=== PATIENT | male | born 1950 | race Caucasian/White ===

== ENCOUNTER 2016-06-10 13:13 | Inpatient (IN) | payer OTHER, MEDICARE ==
[2016-06-10] VITALS (9 sets, daily range): BP systolic 120–145; BP diastolic 65–80; PULSE 90–104; RESP 18–22; TEMP 96.2; O2SAT 87–94
[~2016-06-10] VITALS: Ht 185.4 cm; Wt 85.0 kg
[~2016-06-10 13:13] MED LIST: LEXA10TA PO; METF-324 PO; ULTR50TA PO
[2016-06-10] MEDS ORDERED: TRAM50TA PO (14:50)
[2016-06-10] MEDS ORDERED: METF-382 PO (14:50)
[2016-06-10] MEDS ORDERED: SODIUM CHLORID 0.9% 500 ML INJ 500 ML IV ONE (15:00)
[2016-06-10] MEDS ORDERED: SODIUM CHLORIDE 0.9% FLUSH 5 ML FLUSH IVF PRN ×2 (15:00→18:30)
--- NOTE | 2016-06-10 15:14 | PD ---
HPI Chief Complaint: Abnormal Results Time Seen by Provider: 14:42 Travel History International Travel<30 days: No Contact w/Intl Traveler<30days: No Traveled to known affect area: No History of Present Illness HPI Patient is a 66-year-old male with history of chronic lymphocytic leukemia, type 2 diabetes, hyperlipidemia, htn, presents to emergency room with complaints of shortness of breath. Patient reports that he was seen at the [facility] today, reports that he was sent to the emergency room if he has been experiencing a nonproductive cough and shortness of breath for the past 5 weeks. Patient reports that his shortness of breath is getting worse and was concerned that he was coughing so much, he may have "popped" his lung. Reports that he is not a smoker, reports no recent travels or chest. Denies history of PE or DVT. Denies any sick contacts. Denies fevers or chills. Patient reports shortness of breath at rest as well as on exertion. Pt's initial complaints were "abnormal WBC results." Pt's WBC 337.9 - pt does have CLL which could explain this leukocytosis. As per patient's CLL, pt last had chemotherapy on 11/2015. PFSH Past Medical History Bipolar Disorder: Yes Depression: Yes Cancer: Yes (Leukemia - treated with chemo a few days ago; Skin Cancer - basal cell) Chemotherapy: Yes (PREVIOUSLY FOR SKIN CA) Diabetes: Yes Patient Takes Glucophage: Yes Hypertension: Yes Musculoskeletal: Yes (LOW BACK PAIN) Psychiatric: Yes (Bipolar Disorder, ETOH Abuse, PTSD) Integumentary: Yes Past Surgical History Other Surgery: Yes (SURGERY FOR SKIN CA) Social History Alcohol Use: No (DENIES) Tobacco Use: No Substance Use: No Allergies-Medications (Allergen,Severity, Reaction): Coded Allergies: Olanzapine (Verified Allergy, Unknown, 06/10/16) Per patient "develops oozing blister-like rashes". Citalopram (Verified Adverse Reaction, Intermediate, RASH, 06/10/16) Mirtazapine (Verified Adverse Reaction, Intermediate, RASH, 06/10/16) Paxil (Verified Adverse Reaction, Intermediate, RASH, 06/10/16) Reported Meds & Prescriptions Reported Meds & Active Scripts Active Reported Tramadol (Tramadol HCl) 50 Mg Tab 50 Mg PO Q4H PRN Metformin ER (Metformin HCl) 1,000 Mg Ariane 1,000 Mg PO DAILY With evening meal Review of Systems General / Constitutional: No: Fever Eyes: No: Visual changes HENT: No: Headaches Cardiovascular: No: Chest Pain or Discomfort Respiratory: Positive: Cough, Shortness of Breath, No: Wheezing Gastrointestinal: No: Nausea, Vomiting, Abdominal Pain Genitourinary: No: Dysuria Musculoskeletal: No: Pain Skin: No Rash Neurologic: No: Weakness Psychiatric: No: Depression Endocrine: No: Polydipsia Hematologic/Lymphatic: No: Easy Bruising Physical Exam Narrative GENERAL: moderate distress SKIN: Warm and dry. HEAD: Atraumatic. Normocephalic. EYES: Pupils equal and round. No scleral icterus. No injection or drainage. ENT: No nasal bleeding or discharge. Mucous membranes pink and moist. NECK: Trachea midline. No JVD. CARDIOVASCULAR: tachycardia. No murmur appreciated. RESPIRATORY: Patient with increased work of breathing on evaluation. Clear to auscultation. Breath sounds equal bilaterally. GASTROINTESTINAL: Abdomen soft, non-tender, nondistended. Hepatic and splenic margins not palpable. MUSCULOSKELETAL: No obvious deformities. No clubbing. No cyanosis. No edema. NEUROLOGICAL: Awake and alert. No obvious cranial nerve deficits. Motor grossly within normal limits. Normal speech. PSYCHIATRIC: Appropriate mood and affect; insight and judgment normal. Data Data Last Documented VS Vital Signs Date Time Temp Pulse Resp B/P Pulse Ox O2 Delivery O2 Flow Rate FiO2 06/10/16 16:59 90 18 139/74 93 Non-Rebreather 06/10/16 14:04 2 06/10/16 13:28 96.2 Orders Electrocardiogram (06/10/16 ) B-Type Natriuretic Peptide (06/10/16 14:56) Ckmb (Isoenzyme) Profile (06/10/16 14:56) Complete Blood Count With Diff (06/10/16 14:56) Comprehensive Metabolic Panel (06/10/16 14:56) Magnesium (Mg) (06/10/16 14:56) Prothrombin Time / Inr (Pt) (06/10/16 14:56) Act Partial Throm Time (Ptt) (06/10/16 14:56) Troponin I (06/10/16 14:56) Chest, Single Ap (06/10/16 14:56) Ecg Monitoring (06/10/16 14:56) Iv Access Insert/Monitor (06/10/16 14:56) Oximetry (06/10/16 14:56) Sodium Chloride 0.9% Flush (Ns Flush) (06/10/16 15:00) Sodium Chlorid 0.9% 500 Ml Inj (Ns 500 M (06/10/16 15:00) Influenzae A/B Antigen (06/10/16 14:57) Arterial Blood Gas (Abg) (06/10/16 ) Ct Pulmonary Angiogram (06/10/16 15:47) Azithromycin Inj (Zithromax Inj) (06/10/16 18:15) Ceftriaxone Inj (Rocephin Inj) (06/10/16 18:15) Blood Culture (06/10/16 18:06) I-Stat Profile (06/10/16 18:24) I-Stat Creatinine (06/10/16 18:24) Iv Access Insert/Monitor (06/10/16 18:24) Ecg Monitoring (06/10/16 18:24) Oximetry (06/10/16 18:24) Oxygen Administration (06/10/16 18:24) Sodium Chloride 0.9% Flush (Ns Flush) (06/10/16 18:30) Potassium, Serum (K) (06/10/16 21:47) Calcium Gluconate Inj (Calcium Gluconate (06/10/16 19:00) Insulin Human Regular Inj (Novolin R Inj (06/10/16 19:00) Dextrose 50% In Nahum (Vial) Inj (D50w (Vi (06/10/16 19:00) Sodium Bicarbonate 8.4% Inj (Sodium Bica (06/10/16 19:00) Sodium Polysty Sulfate Liq (Kayexalate L (06/10/16 19:00) Labs Laboratory Tests Test 06/10/16 06/10/16 15:00 15:27 White Blood Count 324.5 TH/MM3 Red Blood Count 3.75 MIL/MM3 Hemoglobin 11.6 GM/DL Hematocrit 36.7 % Mean Corpuscular Volume 97.9 FL Mean Corpuscular Hemoglobin 31.0 PG Mean Corpuscular Hemoglobin 31.6 % Concent Red Cell Distribution Width 15.8 % Platelet Count 206 TH/MM3 Mean Platelet Volume 7.7 FL Neutrophils (%) (Auto) 5.4 % Lymphocytes (%) (Auto) 91.9 % Monocytes (%) (Auto) 1.9 % Eosinophils (%) (Auto) 0.5 % Basophils (%) (Auto) 0.3 % Neutrophils # (Auto) 17.5 TH/MM3 Lymphocytes # (Auto) 298.2 TH/MM3 Monocytes # (Auto) 6.2 TH/MM3 Eosinophils # (Auto) 1.6 TH/MM3 Basophils # (Auto) 1.0 TH/MM3 CBC Comment AUTO DIFF Differential Total Cells 100 Counted Neutrophils % (Manual) 7 % Lymphocytes % 91 % Eosinophils % 2 % Neutrophils # (Manual) 22.7 TH/MM3 Differential Comment FINAL DIFF MANUAL Smudge Cells PRESENT Platelet Estimate NORMAL Platelet Morphology Comment NORMAL Red Cell Morphology Comment NORMAL Prothrombin Time 11.0 SEC Prothromb Time International 1.0 RATIO Ratio Activated Partial 23.1 SEC Thromboplast Time B-Type Natriuretic Peptide 28 PG/ML Blood Gas Puncture Site RT BRACHIAL Blood Gas Patient Temperature 98.6 Blood Gas HCO3 24 mmol/L Blood Gas Base Excess 0.3 mmol/L Blood Gas Oxygen Saturation 90 % Arterial Blood pH 7.43 Arterial Blood Partial 37 mmHg Pressure CO2 Arterial Blood Partial 67 mmHG Pressure O2 Arterial Blood Oxygen Content 14.7 Vol % Arterial Blood 2.5 % Carboxyhemoglobin Arterial Blood Methemoglobin 1.4 % Blood Gas Hemoglobin 11.6 G/DL Oxygen Delivery Device Non-Rebreathing Mask Blood Gas Liter Flow 12 L/M Blood Gas Inspired Oxygen 100 % [facility] Medical Decision Making Medical Screen Exam Complete: Yes Emergency Medical Condition: Yes Interpretation(s) EKG at 1449: NSR at 92bpm, qt/qtc: 344/394, nonspecific t wave changes, no acute st changes Vital Signs Date Time Temp Pulse Resp B/P Pulse Ox O2 Delivery O2 Flow Rate FiO2 06/10/16 14:04 87 Nasal Cannula 2 06/10/16 13:28 96.2 92 20 127/65 88 Differential Diagnosis Pneumothorax, PE, ACS, arrhythmia, influenza, pneumonia, electrolyte abnormality Narrative Course Patient is a 66-year-old male who presents to emergency room with complaints of shortness of breath. Patient reports that he has been feeling short of breath the past 5 weeks, reports that he went to the [facility] for evaluation and was sent to the emergency room for a workup for shortness of breath. Patient is not on home O2, patient pulse ox was 88% on room air. Patient placed on a nonrebreather. concern for pneumonia vs pe vs pneumothorax vs acs - chest xray ordered, abg ordered, labs ordered, ekg ordered delay in dispo of patient as lab as requested a recollect on BMP for the second time Patient chest x-ray with right-sided care paratracheal mass, moderate congestive heart failure is present, there is patchy gastric disease laterally in the right lung - BNP is 28. Patient symptomatically with pneumonia, will start IV antibiotics on patient and order blood cultures ISTAT LABS: BMP: Sodium 134 Potassium 7.4 BUN 19 Creatinine 1.0 Hemoglobin 13.3 Hematocrit 39 Patient with hyperacute T waves on EKG with a potassium of 7.4 - calcium gluconate, insulin, dextrose, sodium bicarbonate, Kayexalate ordered for patient. Patient will require admission for hyperkalemia, CT pending. Patient signed out to care of Dr. Garcia at change of shift Diagnosis Primary Impression: Hyperkalemia Admitting Information Admitting Physician Requests: Admit Gldays Smith DO Jun 10, 2016 15:14
[2016-06-10 15:20] LABS: AUTOMATED NEUTROPHIL # 17.5 TH/MM3 (1.8-7.7); BASOPHIL % 0.3 % (0.0-2.0); EOSINOPHIL # 1.6 TH/MM3 (0-0.4); EOSINOPHIL % 0.5 % (0.0-4.0); HEMATOCRIT 36.7 % (39.0-51.0); LYMPH % 91.9 % (9.0-44.0); LYMPHOCYTE # 298.2 TH/MM3 (1.0-4.8); MEAN CELL VOLUME 97.9 FL (80.0-100.0); MEAN CORPUSCULAR HGB CONC 31.6 % (32.0-36.0); MONO % 1.9 % (0.0-8.0); NEUT % 5.4 % (16.0-70.0); PLATELET COUNT 206 TH/MM3 (150-450); RED BLOOD COUNT 3.75 MIL/MM3 (4.50-5.90); RED CELL DISTRIBUTION WIDTH 15.8 % (11.6-17.2); WHITE BLOOD COUNT 324.5 TH/MM3 (4.0-11.0)
[2016-06-10 15:31] LABS: HEMO FLAGS AUTO DIFF
[2016-06-10 15:31] LABS: BLOOD GAS BASE EXCESS 0.3 mmol/L (-2-2); BLOOD GAS CARBOXYHEMOGLOBIN 2.5 % (0-4); BLOOD GAS HCO3 24 mmol/L (22-26); BLOOD GAS METHEMOGLOBIN 1.4 % (0-2); BLOOD GAS O2 HGB SATURATION 90 % (90-100); BLOOD GAS OXYGEN CONTENT 14.7 Vol % (12.0-20.0); BLOOD GAS PCO2 37 mmHg (38-42); BLOOD GAS PO2 67 mmHG (61-120); BLOOD GAS TOTAL HGB 11.6 G/DL (12.0-16.0); CRITICAL VALUE NO; DRAW SITE RT BRACHIAL; FIO2 100 %; LITER FLOW 12 L/M; NUMBER OF ARTERIAL PUNCTURES 2; STAT YES; TEMP CORR TO 98.6; ULNAR PULSE PRESENT
[2016-06-10 15:37] LABS: APTT (PATIENT) 23.1 SEC (24.3-30.1)
--- NOTE | 2016-06-10 16:21 | RADRPT ---
EXAM DATE/TIME: 06/10/2016 15:13 [facility] COMPARISON: No previous studies available for comparison. INDICATIONS : Short of breath. MEDICAL HISTORY : Leukemia. Diabetes mellitus type II. Skin cancer SURGICAL HISTORY : None. ENCOUNTER: Initial ACUITY: 1 day PAIN SCORE: 0/10 LOCATION: Bilateral chest FINDINGS: The heart is enlarged. Mild interstitial edema with blunting of the left costophrenic sulcus. In ad dition there is a right paratracheal mass. Patchy air-space disease is seen laterally in the right lung. Portions of the bony skeleton visualiz ed are unremarkable. CONCLUSION: 1. Abnormal chest x-ray. Moderate congestive failure is present. 2. Right paratracheal mass. 3. CT pulmonary angiogram is pending. Justin Hernández MD FACR on June 10, 2016 at 16:00 Board Certified Radiologist. This report was verified electronically.
[2016-06-10 16:38] LABS: EOSINOPHILS 2 % (0-4); NEUTROPHIL # MANUAL DIFF 22.7 TH/MM3 (1.8-7.7); POLYS (SEG NEUTROPHILS) 7 % (16-70); WBC DIFF SAMPLE 100
[2016-06-10 16:39] LABS: SMUDGE CELLS PRESENT PRESENT
[2016-06-10 16:40] LABS: PLATELET ESTIMATE SMEAR NORMAL (NORMAL); PLATELET MORPHOLOGY NORMAL (NORMAL); SCAN/DIFF FINAL DIFF MANUAL
--- NOTE | 2016-06-10 17:51 | EKG ---
Date Performed: 06/10/2016 Time Performed: 14:49:21 PTAGE: 66 years EKG: Sinus rhythm WITH OCCASIONAL VENTRICULAR PREMATURE COMPLEXES NONSPECIFIC T-WAVE ABNORMALITY BORDERLINE ECG COMPAR ED TO PRIOR ELECTROCARDIOGRAM, PVCs are present. PREVIOUS TRACING : 03/18/2015 20.32 DOCTOR: Chriss Ortiz Interpretating Date/Time 06/10/2016 17:49:39
[2016-06-10] MEDS ORDERED: cefTRIAXone INJ 1,000 MG in SODIUM CHLORIDE 0.9% INJ 100 ML IV ONE (18:15)
[2016-06-10] MEDS ORDERED: AZITHROMYCIN INJ 500 MG in SODIUM CHLOR 0.9% 250 ML INJ 250 ML IV ONE (18:15)
[2016-06-10 18:58] LABS: I-STAT POTASSIUM 7.4 MMOL/L (3.5-4.9)
[2016-06-10] MEDS ORDERED: SODIUM BICARBONATE 8.4% SOLN 50 MEQ/50 ML VIAL SLOW IVP ONE (19:00)
[2016-06-10] MEDS ORDERED: INSULIN HUMAN REGULAR 1,000 UNITS/10 ML VIAL IV PUSH ONE (19:00)
[2016-06-10] MEDS ORDERED: SODIUM POLYSTYRENE SULFONATE SUSP 15 GM/60 ML CUP PO ONE (19:00)
[2016-06-10] MEDS ORDERED: CALCIUM GLUCONATE 10% 1 GM/10 ML VIAL SLOW IVP ONE (19:00)
[2016-06-10] MEDS ORDERED: DEXTROSE 50% IN WATER 50 ML VIAL(D50) IV PUSH ONE (19:00)
[2016-06-10 19:18] LABS: ANION GAP 8 MEQ/L (5-15)
[2016-06-10 19:22] LABS: ALKALINE PHOSPHATASE 133 U/L (45-117); ALT (GPT) 14 U/L (12-78); AST (GOT) 19 U/L (15-37); BICARBONATE 25.3 MEQ/L (21.0-32.0); BLOOD UREA NITROGEN 17 MG/DL (7-18); CHLORIDE 104 MEQ/L (98-107); GLOMERULAR FILTRATION RATE 76 ML/MIN (>89); MAGNESIUM 2.2 MG/DL (1.5-2.5); SODIUM (NA) 137 MEQ/L (136-145); TOTAL BILIRUBIN ADULT 0.4 MG/DL (0.2-1.0)
[2016-06-10 19:27] LABS: CREATINE KINASE 27 U/L (39-308); POTASSIUM 6.1 MEQ/L (3.5-5.1)
[2016-06-10] MEDS ORDERED: IOHEXOL 350 MG/ML 10 ML VIAL (for RAD DIAG) IV ONE (20:45)
--- NOTE | 2016-06-10 20:55 | RADRPT ---
EXAM DATE/TIME: 06/10/2016 20:24 [facility] COMPARISON: No previous studies available for comparison. INDICATIONS : Shortness of breath and chest pain. IV CONTRAST: 50 cc Omnipaque 350 (iohexol) IV RADIATION DOSE: CTDIvol (mGy) MEDICAL HISTORY : Hypertension. Diabetes mellitus type 1. Leukemia. SURGICAL HISTORY : None. ENCOUNTER: Initial ACUITY: 3 weeks PAIN SCALE: 3/10 LOCATION: Bilateral chest TECHNIQUE: Volumetric scanning of the chest was performed using a pulmonary embolism protocol MIP images were re constructed. Using automated exposure control and adjustment of the mA and/or kV according to patien t size, radiation dose was kept as low as reasonably achievable to obtain optimal diagnostic quality images. FINDINGS: Patient reportedly has a history of leukemia. There is massive mediastinal adenopathy with right para tracheal lymph node measuring up to 8.4 cm AP by 4.3 cm transverse. This also extensive anterior medi astinal, subcarinal and hilar adenopathy as well as bilateral axillary adenopathy and some enlarged l ymph nodes in the pericardial region. No filling defects to suggest pulmonary embolic disease. There is patchy airspace disease throughout both lungs much of the groundglass opacity. There is a mo derate-sized left pleural effusion with compressive atelectasis in the left lower lobe. There is a sm all right effusion which is partially loculated. No acute findings in the upper abdomen. There is spl enomegaly and upper abdominal adenopathy. CONCLUSION: 1. Negative for pulmonary embolus. 2. Extensive mediastinal and axillary adenopathy in patient with reported history of leukemia. 3. Moderate left effusion with compressive atelectasis left lower lung. Extensive bilateral airspace disease in the lungs. Findings nonspecific but differential diagnosis in cludes infection, edema and hypersensitivity pneumonitis. Manjeet Alvarado MD on June 10, 2016 at 20:49 Board Certified Radiologist. This report was verified electronically.
--- NOTE | 2016-06-10 21:42 | PD ---
Data Data Last Documented VS Vital Signs Date Time Temp Pulse Resp B/P Pulse Ox O2 Delivery O2 Flow Rate FiO2 06/10/16 20:08 95 18 131/76 91 Non-Rebreather 11 06/10/16 13:28 96.2 Orders Electrocardiogram (06/10/16 ) B-Type Natriuretic Peptide (06/10/16 14:56) Ckmb (Isoenzyme) Profile (06/10/16 14:56) Complete Blood Count With Diff (06/10/16 14:56) Comprehensive Metabolic Panel (06/10/16 14:56) Magnesium (Mg) (06/10/16 14:56) Prothrombin Time / Inr (Pt) (06/10/16 14:56) Act Partial Throm Time (Ptt) (06/10/16 14:56) Troponin I (06/10/16 14:56) Chest, Single Ap (06/10/16 14:56) Ecg Monitoring (06/10/16 14:56) Iv Access Insert/Monitor (06/10/16 14:56) Oximetry (06/10/16 14:56) Sodium Chloride 0.9% Flush (Ns Flush) (06/10/16 15:00) Sodium Chlorid 0.9% 500 Ml Inj (Ns 500 M (06/10/16 15:00) Influenzae A/B Antigen (06/10/16 14:57) Arterial Blood Gas (Abg) (06/10/16 ) Ct Pulmonary Angiogram (06/10/16 15:47) Azithromycin Inj (Zithromax Inj) (06/10/16 18:15) Ceftriaxone Inj (Rocephin Inj) (06/10/16 18:15) Blood Culture (06/10/16 18:06) I-Stat Profile (06/10/16 18:24) I-Stat Creatinine (06/10/16 18:24) Iv Access Insert/Monitor (06/10/16 18:24) Ecg Monitoring (06/10/16 18:24) Oximetry (06/10/16 18:24) Oxygen Administration (06/10/16 18:24) Sodium Chloride 0.9% Flush (Ns Flush) (06/10/16 18:30) Calcium Gluconate Inj (Calcium Gluconate (06/10/16 19:00) Insulin Human Regular Inj (Novolin R Inj (06/10/16 19:00) Dextrose 50% In Nahum (Vial) Inj (D50w (Vi (06/10/16 19:00) Sodium Bicarbonate 8.4% Inj (Sodium Bica (06/10/16 19:00) Sodium Polysty Sulfate Liq (Kayexalate L (06/10/16 19:00) Iohexol 350 Inj (Omnipaque 350 Inj) (06/10/16 20:45) Basic Metabolic Panel (Bmp) (06/10/16 21:32) Admit Order (Ed Use Only) (06/10/16 21:47) Labs Laboratory Tests Test 06/10/16 06/10/16 06/10/16 06/10/16 15:00 15:27 17:43 18:45 White Blood Count 324.5 TH/MM3 Red Blood Count 3.75 MIL/MM3 Hemoglobin 11.6 GM/DL Hematocrit 36.7 % Mean Corpuscular Volume 97.9 FL Mean Corpuscular Hemoglobin 31.0 PG Mean Corpuscular Hemoglobin 31.6 % Concent Red Cell Distribution Width 15.8 % Platelet Count 206 TH/MM3 Mean Platelet Volume 7.7 FL Neutrophils (%) (Auto) 5.4 % Lymphocytes (%) (Auto) 91.9 % Monocytes (%) (Auto) 1.9 % Eosinophils (%) (Auto) 0.5 % Basophils (%) (Auto) 0.3 % Neutrophils # (Auto) 17.5 TH/MM3 Lymphocytes # (Auto) 298.2 TH/MM3 Monocytes # (Auto) 6.2 TH/MM3 Eosinophils # (Auto) 1.6 TH/MM3 Basophils # (Auto) 1.0 TH/MM3 CBC Comment AUTO DIFF Differential Total Cells 100 Counted Neutrophils % (Manual) 7 % Lymphocytes % 91 % Eosinophils % 2 % Neutrophils # (Manual) 22.7 TH/MM3 Differential Comment FINAL DIFF MANUAL Smudge Cells PRESENT Platelet Estimate NORMAL Platelet Morphology Comment NORMAL Red Cell Morphology Comment NORMAL Prothrombin Time 11.0 SEC Prothromb Time International 1.0 RATIO Ratio Activated Partial 23.1 SEC Thromboplast Time B-Type Natriuretic Peptide 28 PG/ML Blood Gas Puncture Site RT BRACHIAL Blood Gas Patient Temperature 98.6 Blood Gas HCO3 24 mmol/L Blood Gas Base Excess 0.3 mmol/L Blood Gas Oxygen Saturation 90 % Arterial Blood pH 7.43 Arterial Blood Partial 37 mmHg Pressure CO2 Arterial Blood Partial 67 mmHG Pressure O2 Arterial Blood Oxygen Content 14.7 Vol % Arterial Blood 2.5 % Carboxyhemoglobin Arterial Blood Methemoglobin 1.4 % Blood Gas Hemoglobin 11.6 G/DL Oxygen Delivery Device Non-Rebreathing Mask Blood Gas Liter Flow 12 L/M Blood Gas Inspired Oxygen 100 % Sodium Level 137 MEQ/L Potassium Level 6.1 MEQ/L Chloride Level 104 MEQ/L Carbon Dioxide Level 25.3 MEQ/L Anion Gap 8 MEQ/L Blood Urea Nitrogen 17 MG/DL Creatinine 0.99 MG/DL Estimat Glomerular Filtration 76 ML/MIN Rate Random Glucose 176 MG/DL Calcium Level 8.6 MG/DL Magnesium Level 2.2 MG/DL Total Bilirubin 0.4 MG/DL Aspartate Amino Transf 19 U/L (AST/SGOT) Alanine Aminotransferase 14 U/L (ALT/SGPT) Alkaline Phosphatase 133 U/L Total Creatine Kinase 27 U/L Troponin I LESS THAN 0.02 NG/ML Total Protein 5.8 GM/DL Albumin 2.7 GM/DL Bedside Hemoglobin 13.3 G/DL Bedside Hematocrit 39.0 % Bedside Sodium 134 MMOL/L Bedside Potassium 7.4 MMOL/L Bedside Chloride 103 MMOL/L Bedside Blood Urea Nitrogen 19 MG/DL Bedside Creatinine 1.0 MG/DL Bedside Glucose 186 MG/DL [facility] Medical Record Reviewed: Yes Supervised Visit with ALEXANDRO: No Narrative Course CBC & BMP Diagram 06/10/16 15:00 06/10/16 17:43 7.43/37/24 BE 0.3 ABG pO2 67 on FiO2 LFTs normal BNP 28 Tn < 0.02 EKG: sinus, mild T wave prominence, rate 92, QRS 98 Last [address] Angiography 06/10/16 1547 Signed Impressions: Service Date/Time: Friday, June 10, 2016 20:24 - CONCLUSION: 1. Negative for pulmonary embolus. 2. Extensive mediastinal and axillary adenopathy in patient with reported history of leukemia. 3. Moderate left effusion with compressive atelectasis left lower lung. Extensive bilateral airspace disease in the lungs. Findings nonspecific but differential diagnosis includes infection, edema and hypersensitivity pneumonitis. Manjeet Alvarado MD Chest X-Ray 06/10/16 1456 Signed Impressions: Service Date/Time: Friday, June 10, 2016 15:13 - CONCLUSION: 1. Abnormal chest x-ray. Moderate congestive failure is present. 2. Right paratracheal mass. 3. CT pulmonary angiogram is pending. Justin Hernández MD FACR The patient follows at the [facility] about every 3 months or so for evaluation of CLL. He reports thrombocytopenia following interventions in the past. He states he is a full code. He lives at home with his . The patient has received Rocephin and azithromycin. Blood cultures sent. Left lung pleural effusion may require thoracentesis. The patient's O2 sat dips to about 86 without a face mask. At rest O2 sats about 89-92% on nonrebreather. His respiratory rate is about 20 breaths per minute and he can speak in sentences. Heart rate 93 and blood pressure about 130/90 at time of admission. Discussed with Dr. Malin. Sepsis Criteria SIRS Criteria (2 or more): Heart rate over 90, WBC > 83065, < 4000 or > 10% bands Sepsis Criteria (SIRS+source): Infect source susp/known Diagnosis Primary Impression: Hyperkalemia Additional Impressions: CLL (chronic lymphocytic leukemia) Pneumonia Qualified Code: J18.9 - Pneumonia of both lungs due to infectious organism, unspecified part of lung Pleural effusion Hypoxia Admitting Information Admitting Physician Requests: Admit Suman Garcia MD Jun 10, 2016 21:42
--- NOTE | 2016-06-10 22:02 | HHI.HP ---
[facility] Service Critical Care Medicine [facility] Admission Diagnosis Hypoxia, HyperK, L Pl Eff, PNA, Leukemia Diagnosis: (1) CLL (chronic lymphocytic leukemia) Diagnosis: Principal (2) History of bipolar disorder Diagnosis: Principal (3) History of post traumatic stress disorder Diagnosis: Principal (4) Hyperkalemia Diagnosis: Principal (5) Pneumonia Diagnosis: Principal (6) Respiratory failure Diagnosis: Principal (7) Diabetes mellitus Diagnosis: Principal (8) Posttraumatic stress disorder Diagnosis: Principal (9) Agammaglobulinemia Diagnosis: Principal (10) Hypertension Diagnosis: Principal (11) Osteoarthritis Diagnosis: Principal (12) Severe sepsis Diagnosis: Principal Chief Complaint: Shortness of breath Travel History International Travel<30 Days: No Contact w/Intl Traveler <30 Da: No Traveled to Known Affected Are: No Sepsis Criteria SIRS Criteria (2 or more): Temp > 100.9 or < 96.8, WBC > 15839, < 4000 or > 10 % bands Sepsis Criteria (SIRS+source): Infect source susp/known Severe Sepsis (+one): Lactate >2 Criteria Outcome: Meets severe sepsis criteria History of Present Illness 66-year-old male. Date of admission 06/10/2016. Past medical history includes CLL treated by Dr. Steele at the [place], diabetes type 2, squamous cell carcinoma of the scalp, rosacea, EtOH, bipolar, depression, PTSD, actinic keratosis, chronic low back pain, dyslipidemia, osteoarthritis. Last chemotherapy 11/15. He presents to [facility] with the 5 history increasing shortness of breath, worse with exertion. Associated with nonproductive cough. Reports that he is not a smoker, reports no recent travels or chest. Denies history of PE or DVT. Denies any sick contacts. Denies fevers or chills. Chest x-ray revealed pneumonia with possible pleural effusion left side. CT revealed no pulmonary embolism. Moderate left pleural effusion. Bronchial pneumonia type findings with inflammatory changes throughout. Patient was placed on nonrebreather mask is currently comfortable and will speak complete sentences. Patient also had a potassium of 7.3.. Received Kayexalate D50 insulin and calcium is currently corrected to 4.4. He is currently status post thoracentesis 1 L of serosanguineous fluid left side. Chest x-ray is currently pending. Review of Systems Constitutional: COMPLAINS OF: Fatigue, Fever, Weight loss, DENIES: Weight gain Endocrine: DENIES: Polydipsia, Polyuria Eyes: DENIES: Blurred vision, Double Vision Respiratory: COMPLAINS OF: Sputum production, Shortness of breath, DENIES: Apneas, Wheezing, Hemoptysis Cardiovascular: DENIES: Chest pain Gastrointestinal: DENIES: Abdominal pain Genitourinary: DENIES: Sexual dysfunction Musculoskeletal: COMPLAINS OF: Joint pain, Muscle aches, DENIES: Neck pain Integumentary: DENIES: Abnormal pigmentation Hematologic/lymphatic: DENIES: Bruising Immunologic/allergic: DENIES: Eczema Neurologic: DENIES: Abnormal gait, Headache Psychiatric: DENIES: Anxiety, Confusion Past Family Social History Allergies: Coded Allergies: Olanzapine (Verified Allergy, Unknown, 06/10/16) Per patient "develops oozing blister-like rashes". Citalopram (Verified Adverse Reaction, Intermediate, RASH, 06/10/16) Mirtazapine (Verified Adverse Reaction, Intermediate, RASH, 06/10/16) Paxil (Verified Adverse Reaction, Intermediate, RASH, 06/10/16) Past Medical History Diabetes mellitus type 2 Ocular rosacea Squamous cell carcinoma of the scalp Prurigo nodularis She had squamous cell carcinoma of the skin A gammaglobulin anemia history of EtOH abuse/binge drinking Bipolar affective disorder Depression Posttraumatic stress disorder Actinic keratosis CLL Chronic low back pain Osteoarthritis Morbid obesity Hypertension Dyslipidemia Reported Medications Reported Meds & Active Scripts Active Reported Tramadol (Tramadol HCl) 50 Mg Tab 50 Mg PO Q4H PRN Metformin ER (Metformin HCl) 1,000 Mg Ariane 1,000 Mg PO DAILY With evening meal Active Ordered Medications Reviewed in EMR Family History Brother with EtOH abuse. 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 Denies tobacco or IV drug use. Prior documentation of binge/social alcohol drinking. Physical Exam Vital Signs Vital Signs Date Time Temp Pulse Resp B/P Pulse Ox O2 Delivery O2 Flow Rate FiO2 06/10/16 20:08 95 18 131/76 91 Non-Rebreather 11 06/10/16 20:08 91 Non-Rebreather 11 06/10/16 16:59 90 18 139/74 93 Non-Rebreather 06/10/16 15:04 95 22 120/66 92 Non-Rebreather 06/10/16 15:03 22 91 Non-Rebreather 06/10/16 14:04 87 Nasal Cannula 2 06/10/16 13:28 96.2 92 20 127/65 88 Physical Exam GENERAL: 66-year-old male, critically ill currently a nonrebreather mask SKIN: Warm and dry. Multiple nodularities noted. Prior skin flap to right side of head and skin graft to the apex of calvarium. HEAD: Prior scarring to head as above EYES: Pupils equal and round about 3 mm bilaterally and reactive. No scleral icterus. No injection or drainage. ENT: No nasal bleeding or discharge. Mucous membranes pink and moist. NECK: Trachea midline. No JVD. CARDIOVASCULAR: Tachycardic, RR.. S1, S2. No S4. Murmurs not appreciated RESPIRATORY: Diminished breath sounds left lung field. Positive end expiratory wheeze GASTROINTESTINAL: Abdomen soft, non-tender, nondistended. Hypoactive bowel sounds MUSCULOSKELETAL: Extremities without significant peripheral edema. No obvious deformities. NEUROLOGICAL: Awake and alert. No obvious cranial nerve deficits. Motor grossly within normal limits. Five out of 5 muscle strength in the arms and legs. Normal speech. PSYCHIATRIC: Appropriate mood and affect; insight and judgment normal. Laboratory Laboratory Tests Test 06/10/16 06/10/16 06/10/16 06/10/16 15:00 15:27 17:43 18:45 White Blood Count 324.5 Red Blood Count 3.75 Hemoglobin 11.6 Hematocrit 36.7 Mean Corpuscular Volume 97.9 Mean Corpuscular Hemoglobin 31.0 Mean Corpuscular Hemoglobin 31.6 Concent Red Cell Distribution Width 15.8 Platelet Count 206 Mean Platelet Volume 7.7 Neutrophils (%) (Auto) 5.4 Lymphocytes (%) (Auto) 91.9 Monocytes (%) (Auto) 1.9 Eosinophils (%) (Auto) 0.5 Basophils (%) (Auto) 0.3 Neutrophils # (Auto) 17.5 Lymphocytes # (Auto) 298.2 Monocytes # (Auto) 6.2 Eosinophils # (Auto) 1.6 Basophils # (Auto) 1.0 CBC Comment AUTO DIFF Differential Total Cells 100 Counted Neutrophils % (Manual) 7 Lymphocytes % 91 Eosinophils % 2 Neutrophils # (Manual) 22.7 Differential Comment FINAL DIFF MANUAL Smudge Cells PRESENT Platelet Estimate NORMAL Platelet Morphology Comment NORMAL Red Cell Morphology Comment NORMAL Prothrombin Time 11.0 Prothromb Time International 1.0 Ratio Activated Partial 23.1 Thromboplast Time B-Type Natriuretic Peptide 28 Blood Gas Puncture Site RT BRACHIAL Blood Gas Patient Temperature 98.6 Blood Gas HCO3 24 Blood Gas Base Excess 0.3 Blood Gas Oxygen Saturation 90 Arterial Blood pH 7.43 Arterial Blood Partial 37 Pressure CO2 Arterial Blood Partial 67 Pressure O2 Arterial Blood Oxygen Content 14.7 Arterial Blood 2.5 Carboxyhemoglobin Arterial Blood Methemoglobin 1.4 Blood Gas Hemoglobin 11.6 Oxygen Delivery Device Non-Rebreathing Mask Blood Gas Liter Flow 12 Blood Gas Inspired Oxygen 100 Sodium Level 137 Potassium Level 6.1 Chloride Level 104 Carbon Dioxide Level 25.3 Anion Gap 8 Blood Urea Nitrogen 17 Creatinine 0.99 Estimat Glomerular Filtration 76 Rate Random Glucose 176 Calcium Level 8.6 Magnesium Level 2.2 Total Bilirubin 0.4 Aspartate Amino Transf 19 (AST/SGOT) Alanine Aminotransferase 14 (ALT/SGPT) Alkaline Phosphatase 133 Total Creatine Kinase 27 Troponin I LESS THAN 0.02 Total Protein 5.8 Albumin 2.7 Bedside Hemoglobin 13.3 Bedside Hematocrit 39.0 Bedside Sodium 134 Bedside Potassium 7.4 Bedside Chloride 103 Bedside Blood Urea Nitrogen 19 Bedside Creatinine 1.0 Bedside Glucose 186 Date/Time Procedure Status Source Growth 06/10/16 18:20 Aerobic Blood Culture Received Blood Peripheral Pending 06/10/16 18:20 Anaerobic Blood Culture Received Blood Peripheral Pending Result Diagram: 06/10/16 1500 06/10/16 [address] Angiography 06/10/16 1547 Signed Impressions: Service Date/Time: Friday, June 10, 2016 20:24 - CONCLUSION: 1. Negative for pulmonary embolus. 2. Extensive mediastinal and axillary adenopathy in patient with reported history of leukemia. 3. Moderate left effusion with compressive atelectasis left lower lung. Extensive bilateral airspace disease in the lungs. Findings nonspecific but differential diagnosis includes infection, edema and hypersensitivity pneumonitis. Manjeet Alvarado MD Chest X-Ray 06/10/16 1456 Signed Impressions: Service Date/Time: Friday, June 10, 2016 15:13 - CONCLUSION: 1. Abnormal chest x-ray. Moderate congestive failure is present. 2. Right paratracheal mass. 3. CT pulmonary angiogram is pending. Justin Hernández MD FACR Assessment and Plan Assessment and Plan Neuro/Psych: Bipolar disorder Post traumatic stress disorder Depression EtOH/binge drinking by history Patient is alert and not currently on any anti-psychiatric medications. Has been [place] acted and admitted for psychiatric evaluation in the past for adjustment disorder/suicidal ideation Acetaminophen for fever. [place]/morphine for pain management Vitamin bag daily 3.. Monitor for DTs CV: Hypertension Dyslipidemia Currently on normal saline at 84 cc an hour. Not requiring any anti-hypertensives and or vasopressors Resp: Acute hypoxemic respiratory failure Community-acquired pneumonia Left pleural effusion Mediastinal/axillary lymphadenopathy Currently on nonrebreather mask. Titrate to keep saturations greater than equal to 92% Incentive spirometry while awake Bronchodilator therapy every 4 hours and as needed Solu-Medrol 40 iv every 8 hours. Received 125 mg 1 in ED. -1 L serosanguineous from left-sided thoracentesis. Studies sent see orders. Multinodular lymphadenopathy involving axillary/mediastinal regions. Significant bronchopulmonary pneumonia bilaterally. Moderate left pleural effusion. Pulmonary consultation GI: Patient is currently nothing by mouth. Protonix for GI prophylaxis Colace/as needed Senokot for bowel regimen : Rosario if indicated for accurate I's and O's in a critically ill patient Endo: Diabetes mellitus type 2 Patient is on metformin 1000 mg twice daily for diabetes. Patient is currently on sliding scale insulin to maintain euglycemia/moderate regimen Renal: Creatinine currently within normal limits. Accurate I/os. Monitor urine output closely. Follow-up a.m. BMP Heme: CLL - sees Dr. Steele/[facility] Leukocytosis/lymphocytic or dominant - Actinic keratosis History of squamous and basal cell carcinoma of the skin Agammaglobulinemia Prurigo nodularis Sees Dr. Steele/oncology at [place] We'll consult infectious disease here for recommendations regarding therapy/ treatment. Will need old records to define current pulmonary condition ID: Bronchopneumonia/community-acquired Chronic prophylactic antibiotic/antifungal medications We'll place on vancomycin, Zosyn/Zithromax (community-acquired pneumonia. CPAP 1 g Rocephin/500 mg Zithromax in ED. Patient is on Diflucan 100 mg by mouth daily and Bactrim 1 tablet every Wednesday/ Wednesday for infection. Blood cultures 2, sputum, influenza, urine Legionella and pneumococcal antigens , chlamydia and mycoplasma antibodies are pending ID will be consulted light of immunocompromise condition Continue Diflucan FEN: Hyperkalemia EKG with peaked T waves. Giving Kayexalate 15 g, calcium gluconate, D50 and insulin. Recheck at 2130 Unknown source possibly Bactrim question funmilayo. Creatinine currently within normal limits. MSK: Osteoarthritis Chronic low back pain PT evaluate and treat Patient is on Ultram 2 tablets every 6 hours as needed for pain at home. Access - Utilize peripheral IV. Central line if indicated Prophylaxis - GI - Protonix - DVT - SCD/heparin subcutaneous Critical Care: The total critical care time was 85 minutes. Time to perform other separately billable procedures was not included in the critical care time. Code Status Full code Discussed Condition With Patient. Dr. Garcia/ED physician. Care plan discussed and all questions answered Problem Qualifiers (1) Pneumonia: Qualified Code: J18.9 - Pneumonia of both lungs due to infectious organism, unspecified part of lung (2) Respiratory failure: Qualified Code: J96.01 - Acute respiratory failure with hypoxia and hypercapnia (3) Diabetes mellitus: Qualified Code: E11.8 - Type 2 diabetes mellitus with complication, without long-term current use of insulin (4) Hypertension: Qualified Code: I10 - Essential hypertension (5) Osteoarthritis: Qualified Code: M19.90 - Osteoarthritis, unspecified osteoarthritis type, unspecified site Dakota Malin MD Jun 10, 2016 22:02
[2016-06-10] MEDS ORDERED: Vancomycin Consult Pharmacy 1 EA XX SCH (22:15)
[2016-06-10] MEDS ORDERED: MISCELLANEOUS NURSING INFORMATION XX SCH (22:15)
[2016-06-10] MEDS ORDERED: MORPHINE SULFATE 4 MG/ML INJ IV PRN (22:15)
[2016-06-10] MEDS ORDERED: RESP: ALBUTEROL 2.5 MG/IPRATROPIUM 0.5 MG NEB (PRN) INH (22:15)
[2016-06-10] MEDS ORDERED: GLUCAGON 1 MG/ML VIAL OTHER PRN (22:15)
[2016-06-10] MEDS ORDERED: SENNOSIDES 8.6 MG TAB PO PRN (22:15)
[2016-06-10] MEDS ORDERED: SODIUM CHLORIDE 0.9% FLUSH 5 ML FLUSH IV FLUSH PRN (22:15)
[2016-06-10] MEDS ORDERED: DEXTROSE 50% IN WATER 50 ML VIAL(D50) IV PUSH PRN (22:15)
[2016-06-10] MEDS ORDERED: LORazepam 2 MG/ML VIAL IV PRN (22:15)
[2016-06-10] MEDS ORDERED: ONDANSETRON HCL 4 MG/2 ML VIAL IV PRN (22:15)
[2016-06-10] MEDS ORDERED: CHLORHEXIDINE GLUCONATE 2 % 1 PACK (2 CLOTHS) TOP PRN (22:15)
[2016-06-10] MEDS ORDERED: ACETAMINOPHEN 325 MG TAB PO PRN (22:15)
--- NOTE | 2016-06-10 23:10 | PD.PROCEDR ---
Procedure Note Procedure DATE: 06/10/2016 PROCEDURE: Thoracentesis INDICATION: Large left pleural effusion DETAILS OF PROCEDURE The patient was placed in optimal position and preoxygenated with 100% FiO2 via bag valve mask. The patient's left side was prepped and draped in a sterile manner after the appropriate infiltration level was confirmed by ultrasound. 1 % lidocaine was used in this side the surrounding skin. A finder needle was used to locate including serosanguineous fluid was obtained. A 10 blade scalpel was used to make incision. The thoracentesis catheter was then threaded without difficulty. The patient had about 1 L of serous including his fluid removed. A postprocedure chest x-ray was ordered in the fluid will be sent for studies. EBL was approximately 1 cc the patient tolerated the procedure well and there were no immediate complications. Dakota Malin MD Jun 10, 2016 23:10
[2016-06-10 23:30] LABS: I-STAT POTASSIUM 4.4 MMOL/L (3.5-4.9)
--- NOTE | 2016-06-10 23:44 | RADRPT ---
EXAM DATE/TIME: 06/10/2016 21:35 [place] COMPARISON: CHEST SINGLE AP, June 10, 2016, 15:13. INDICATIONS : Post left thoracentesis MEDICAL HISTORY : Leukemia. Diabetes mellitus type II. Skin cancer SURGICAL HISTORY : None. ENCOUNTER: Initial ACUITY: 1 day PAIN SCORE: 0/10 LOCATION: Left chest FINDINGS: There is improved aeration of left lung status post thoracentesis. Mediastinal mass again seen. No de finite pneumothorax. CONCLUSION: Improved aeration of the left lung status post thoracentesis. Mediastinal mass. Leonidas Vale MD on June 10, 2016 at 23:42 Board Certified Radiologist. This report was verified electronically.
[2016-06-10 23:48] LABS: BICARBONATE 19.3 MEQ/L (21.0-32.0); POTASSIUM 5.2 MEQ/L (3.5-5.1)
[2016-06-11] VITALS (17 sets, daily range): BP systolic 108–129; BP diastolic 59–79; PULSE 82–104; RESP 15–21; TEMP 98.1–98.4; O2SAT 86–97
[2016-06-11] MEDS: MULTIVITAMIN INJ 10 ML, THIAMINE INJ 100 MG, FOLIC ACID INJ 1 MG in SODIUM CHLORID 0.9%... IV SCH ×2 (00:02→08:12)
[2016-06-11] MEDS: FLUCONAZOLE 100 MG PREMIX BAG 50 ML IV SCH ×2 (00:02→20:52)
[2016-06-11 00:32] LABS: TOTAL PROTEIN,PLEURAL FLUID 3.2 GM/DL
[2016-06-11] MEDS: ENOXAPARIN SODIUM 30 MG/0.3 ML SYRINGE SQ SCH ×2 (01:05→22:48)
[2016-06-11] MEDS: VANCOMYCIN INJ 1,300 MG in SODIUM CHLORID 0.9% 500 ML INJ 500 ML IV SCH ×3 (01:06→22:47)
[2016-06-11 01:23] LABS: PLEURAL FLUID LYMPHS 81 %; PLEURAL FLUID PH 6.7
[2016-06-11] MEDS: SODIUM CHLOR 0.9% 1000 ML INJ 1,000 ML IV SCH ×4 (02:04→05:46)
[2016-06-11 03:45] LABS: HEMATOCRIT 33.7 % (39.0-51.0); MEAN CORPUSCULAR HEMOGLOBIN 30.2 PG (27.0-34.0); MEAN CORPUSCULAR HGB CONC 31.2 % (32.0-36.0); PLATELET COUNT 190 TH/MM3 (150-450); RED BLOOD COUNT 3.47 MIL/MM3 (4.50-5.90); RED CELL DISTRIBUTION WIDTH 15.2 % (11.6-17.2); WHITE BLOOD COUNT 280.1 TH/MM3 (4.0-11.0)
[2016-06-11 03:50] LABS: HEMO FLAGS AUTO DIFF
[2016-06-11] MEDS: CHLORHEXIDINE GLUCONATE 2 % 1 PACK (2 CLOTHS) TOP SCH (04:00)
[2016-06-11 04:10] LABS: ALKALINE PHOSPHATASE 115 U/L (45-117); ALT (GPT) 12 U/L (12-78); ANION GAP 9 MEQ/L (5-15); AST (GOT) 14 U/L (15-37); BICARBONATE 25.8 MEQ/L (21.0-32.0); BLOOD UREA NITROGEN 18 MG/DL (7-18); CHLORIDE 108 MEQ/L (98-107); GLOMERULAR FILTRATION RATE 89 ML/MIN (>89); MAGNESIUM 2.1 MG/DL (1.5-2.5); POTASSIUM 3.8 MEQ/L (3.5-5.1); SODIUM (NA) 143 MEQ/L (136-145); TOTAL BILIRUBIN ADULT 0.5 MG/DL (0.2-1.0)
[2016-06-11 04:17] LABS: EOSINOPHILS 1 % (0-4); NEUTROPHIL # MANUAL DIFF 25.2 TH/MM3 (1.8-7.7); POLYS (SEG NEUTROPHILS) 9 % (16-70); WBC DIFF SAMPLE 100
[2016-06-11 04:18] LABS: PLATELET ESTIMATE SMEAR NORMAL (NORMAL); PLATELET MORPHOLOGY NORMAL (NORMAL); SCAN/DIFF FINAL DIFF MANUAL; SMUDGE CELLS PRESENT PRESENT
[2016-06-11] MEDS: PIPERACIL-TAZO 4.5 GM PREMIX 100 ML IV SCH ×4 (05:52→22:46)
[2016-06-11] MEDS: RESP: ALBUTEROL 2.5 MG/IPRATROPIUM 0.5 MG NEB (SCH) INH ×5 (05:58→19:30)
[2016-06-11] MEDS: INSULIN NovoLIN REGULAR SUPPLEMENTAL SCALE SQ SCH ×4 (06:27→20:46)
[2016-06-11] MEDS: ARTIFICIAL TEARS OPTH SOLN 15 ML BTL EACH EYE SCH ×3 (08:11→18:37)
[2016-06-11] MEDS: SODIUM CHLORIDE 0.9% FLUSH 5 ML FLUSH IV FLUSH SCH ×2 (08:11→20:44)
[2016-06-11] MEDS: DOCUSATE SODIUM 100 MG CAP PO SCH ×2 (08:11→20:43)
[2016-06-11] MEDS: PANTOPRAZOLE SODIUM 40 MG VIAL IV SCH (08:11)
[2016-06-11] MEDS ORDERED: MULTIVITAMIN INJ 10 ML, THIAMINE INJ 100 MG, FOLIC ACID INJ 1 MG in SODIUM CHLORID 0.9%... IV SCH (09:00)
--- NOTE | 2016-06-11 14:04 | HHI.CCPN ---
Subjective Remarks/Hospital Course 66-year-old male. Date of admission 06/10/2016. Past medical history includes CLL treated by Dr. Steele at the [place], diabetes type 2, squamous cell carcinoma of the scalp, rosacea, EtOH, bipolar, depression, PTSD, actinic keratosis, chronic low back pain, dyslipidemia, osteoarthritis. Last chemotherapy 11/15. He presents to [facility] with the 5 history increasing shortness of breath, worse with exertion. Associated with nonproductive cough. Reports that he is not a smoker, reports no recent travels or chest. Denies history of PE or DVT. Denies any sick contacts. Denies fevers or chills. Chest x-ray revealed pneumonia with possible pleural effusion left side. CT revealed no pulmonary embolism. Moderate left pleural effusion. Bronchial pneumonia type findings with inflammatory changes throughout. Patient was placed on nonrebreather mask is currently comfortable and will speak complete sentences. Patient also had a potassium of 7.3.. Received Kayexalate D50 insulin and calcium is currently corrected to 4.4. Objective Vital Signs Date Time Temp Pulse Resp B/P Pulse Ox O2 Delivery O2 Flow Rate FiO2 06/11/16 12:00 98.3 101 19 129/79 97 06/11/16 08:45 [facility] 15.00 Result Diagram: 06/11/1631806/11/169 Other Results Microbiology Date/Time Procedure Status Source Growth 06/10/16 22:25 Influenza Types A,B Antigen (ANSHU) - Final Complete Nasal Aspirate NEGATIVE FOR FLU A AND B ANTIGEN.... 06/10/16 23:59 Legionella Antigen - Final Complete Urine Suprapubic Urine PRESUMPTIVE NEGATIVE FOR LEGIONELLA P... 06/10/16 23:59 Streptococcus pneumoniae Antigen (M - Final Complete Urine Catheterized Urine PRESUMPTIVE NEGATIVE FOR STREPTOCOCCU... Laboratory Tests Test 06/10/16 15:27 Blood Gas Puncture Site RT BRACHIAL Blood Gas Patient Temperature 98.6 Blood Gas HCO3 24 mmol/L (22-26) Blood Gas Base Excess 0.3 mmol/L (-2-2) Blood Gas Oxygen Saturation 90 % (90-100) Arterial Blood pH 7.43 (7.380-7.420) Arterial Blood Partial 37 mmHg (38-42) Pressure CO2 Arterial Blood Partial 67 mmHG Pressure O2 (61-120) Arterial Blood Oxygen Content 14.7 Vol % (12.0-20.0) Arterial Blood 2.5 % (0-4) Carboxyhemoglobin Arterial Blood Methemoglobin 1.4 % (0-2) Blood Gas Hemoglobin 11.6 G/DL (12.0-16.0) Oxygen Delivery Device Non-Rebreathing Mask Blood Gas Liter Flow 12 L/M Blood Gas Inspired Oxygen 100 % Imaging Last Impressions CT Angiography 06/10/16 1547 Signed Impressions: Service Date/Time: Friday, June 10, 2016 20:24 - CONCLUSION: 1. Negative for pulmonary embolus. 2. Extensive mediastinal and axillary adenopathy in patient with reported history of leukemia. 3. Moderate left effusion with compressive atelectasis left lower lung. Extensive bilateral airspace disease in the lungs. Findings nonspecific but differential diagnosis includes infection, edema and hypersensitivity pneumonitis. Manjeet Alvarado MD Chest X-Ray 06/10/16 1456 Signed Impressions: Service Date/Time: Friday, June 10, 2016 15:13 - CONCLUSION: 1. Abnormal chest x-ray. Moderate congestive failure is present. 2. Right paratracheal mass. 3. CT pulmonary angiogram is pending. Justin Hernández MD FACR Objective Remarks GENERAL: 66-year-old male, critically ill currently a nonrebreather mask SKIN: Warm and dry. Multiple nodularities noted. Prior skin flap to right side of head and skin graft to the apex of calvarium. HEAD: Prior scarring to head as above EYES: Pupils equal and round about 3 mm bilaterally and reactive. No scleral icterus. No injection or drainage. ENT: No nasal bleeding or discharge. Mucous membranes pink and moist. NECK: Trachea midline. No JVD. CARDIOVASCULAR: Tachycardic, RR.. S1, S2. No S4. Murmurs not appreciated RESPIRATORY: Diminished breath sounds left lung field. Positive end expiratory wheeze GASTROINTESTINAL: Abdomen soft, non-tender, nondistended. Hypoactive bowel sounds MUSCULOSKELETAL: Extremities without significant peripheral edema. No obvious deformities. NEUROLOGICAL: Awake and alert. No obvious cranial nerve deficits. Motor grossly within normal limits. Five out of 5 muscle strength in the arms and legs. Normal speech. PSYCHIATRIC: Appropriate mood and affect; insight and judgment normal. A/P Assessment and Plan Acute hypoxemic respiratory failure - Left pleural effusion - Community-acquired pneumonia - Bronchodilator therapy every 4 hours and as needed - Solu-Medrol 40 iv every 8 hours. - 1 L serosanguineous from left-sided thoracentesis. - Follow-up cultures and sensitivity. - Multinodular lymphadenopathy involving axillary/mediastinal regions - Broad-spectrum antibiotics - De-escalate per sensitivity and ID recommendations - Significant bronchopulmonary pneumonia bilaterally. - Moderate left pleural effusion - Pulmonary consultation Bipolar disorder/Depression - Patient is not currently on any anti-psychiatric medications - supportive care Hypertension - Currently on normal saline at 84 cc an hour. - Normotensive - Not requiring any anti-hypertensives and or vasopressors Diabetes mellitus type 2 - Hold metformin while in the ICU - Continue sliding scale insulin to maintain euglycemia/moderate regimen CLL - sees Dr. Steele/[place] - We'll consult infectious and medical oncology disease for recommendations regarding therapy/treatment. Bronchopneumonia/community-acquired - Vancomycin, Zosyn/Zithromax (community-acquired pneumonia. - CPAP 1 g Rocephin/500 mg Zithromax in ED. - Patient is on Diflucan 100 mg by mouth daily and Bactrim 1 tablet every Wednesday /Wednesday for infection. - Blood cultures 2, sputum, influenza, urine Legionella and pneumococcal antigens, chlamydia and mycoplasma antibodies are pending - Further per ID recommendations Access: - Utilize peripheral IV. Central line if indicated Prophylaxis - GI - Protonix - DVT - SCD/heparin subcutaneous Level III Ricardo Blkae MD Jun 11, 2016 14:04 Renal: Creatinine currently within normal limits. Accurate I/os. Monitor urine output closely. Follow-up a.m. BMP Heme: CLL - sees Dr. Steele/[place] Leukocytosis/lymphocytic or dominant - Actinic keratosis History of squamous and basal cell carcinoma of the skin Agammaglobulinemia Prurigo nodularis Sees Dr. Steele/oncology at [facility] We'll consult infectious disease here for recommendations regarding therapy/ treatment. Will need old records to define current pulmonary condition ID: Bronchopneumonia/community-acquired Chronic prophylactic antibiotic/antifungal medications We'll place on vancomycin, Zosyn/Zithromax (community-acquired pneumonia. CPAP 1 g Rocephin/500 mg Zithromax in ED. Patient is on Diflucan 100 mg by mouth daily and Bactrim 1 tablet every Wednesday/ Wednesday for infection. Blood cultures 2, sputum, influenza, urine Legionella and pneumococcal antigens , chlamydia and mycoplasma antibodies are pending ID will be consulted light of immunocompromise condition Continue Diflucan FEN: Hyperkalemia EKG with peaked T waves. Giving Kayexalate 15 g, calcium gluconate, D50 and insulin. Recheck at 2130 Unknown source possibly Bactrim question funmilayo. Creatinine currently within normal limits. MSK: Osteoarthritis Chronic low back pain PT evaluate and treat Patient is on Ultram 2 tablets every 6 hours as needed for pain at home. Access - Utilize peripheral IV. Central line if indicated Prophylaxis - GI - Protonix - DVT - SCD/heparin subcutaneous Critical Care: The total critical care time was 85 minutes. Time to perform other separately billable procedures was not included in the critical care time. Ricardo Blake MD Jun 11, 2016 14:04
--- NOTE | 2016-06-11 16:16 | PD.ID.CON ---
History of Present Illness Service ID Consult Requested By Dr Malin Reason for Consult PNA Primary Care Physician [facility] Diagnoses: History of Present Illness 66 M with CLL 2 wks of cough maliase abx x 10 days [facility] worse admitted to [facility] he is better clx neg denies sick contact He remains afebrile the whole admission His total WBC on admission was over 300K with ANC of 17K Pt is on broad spectrum abx since admission He clinically improved and now is feeling much better He does not expectorate and therefore his sputum clx was not done, but he has negative BC, neg Leionells/pneumococcus and flu antiogen His CT chest showed Moderate left effusion with compressive atelectasis left lower lung and extensive bilateral airspace disease in the lungs Pleural fluid G stain was negative, clx P Past Family Social History Allergies: Coded Allergies: Olanzapine (Verified Allergy, Unknown, 06/10/16) Per patient "develops oozing blister-like rashes". 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 Otherwise unremarkable Social History [place] exposure. Denies tobacco or IV drug use. Prior documentation of binge/social alcohol drinking. Physical Exam Vital Signs Vital Signs Date Time Temp Pulse Resp B/P Pulse Ox O2 Delivery O2 Flow Rate FiO2 06/11/16 14:00 104 06/11/16 12:00 98.3 101 19 129/79 97 06/11/16 12:00 101 06/11/16 10:00 99 06/11/16 08:45 95 nebumask 15.00 06/11/16 08:00 98.2 91 18 126/68 91 06/11/16 08:00 91 Non-Rebreather 06/11/16 08:00 91 06/11/16 06:00 92 06/11/16 05:58 94 Non-Rebreather 15.00 06/11/16 04:00 86 06/11/16 04:00 98.1 86 15 113/67 94 06/11/16 03:00 87 06/11/16 03:00 94 Non-Rebreather 06/11/16 02:50 98.1 91 20 118/70 93 06/11/16 02:04 98.1 88 18 121/63 93 Room Air 06/11/16 01:07 98.4 86 18 118/66 92 Non-Rebreather 06/10/16 23:02 103 18 134/72 93 Non-Rebreather 11 06/10/16 22:50 104 18 145/80 92 Non-Rebreather 11 06/10/16 22:37 104 20 144/77 94 Non-Rebreather 12 06/10/16 20:08 95 18 131/76 91 Non-Rebreather 11 06/10/16 20:08 91 Non-Rebreather 11 06/10/16 20:08 91 Non-Rebreather 11.00 06/10/16 16:59 90 18 139/74 93 Non-Rebreather 06/10/16 16:59 93 Non-Rebreather Physical Exam CONSTITUTIONAL/GENERAL: This is an adequately nourished patient, in no apparent distress. TUBES/LINES/DRAINS: SKIN: No jaundice, rashes, + scattered skin ca lesions. . Not diaphoretic. Large skin flap R parietal area HEAD: Atraumatic. Normocephalic. EYES: Pupils equal and round and reactive. Extraocular motions intact. No scleral icterus. No injection or drainage. Fundi not examined. ENT: Hearing grossly normal. Nose without bleeding or purulent drainage. Throat without visible erythema, exudates, masses, or lesions. Edentulous NECK: Trachea midline. Supple, nontender. CARDIOVASCULAR: Regular rate and rhythm without murmurs, gallops, or rubs. No JVD. Peripheral pulses symmetric. RESPIRATORY/CHEST: Symmetric, unlabored respirations. Clear to auscultation. Breath sounds equal bilaterally. No wheezes, rales, or rhonchi. GASTROINTESTINAL: Abdomen soft, non-tender, nondistended. No hepato-splenomegaly , or palpable masses. No guarding. Bowel sounds present. GENITOURINARY: Without palpable bladder distension. MUSCULOSKELETAL: Extremities without clubbing, cyanosis, or edema. No joint tenderness or effusion noted. No calf tenderness. No mottling or clubbing. LYMPHATICS: No palpable cervical or supraclavicular adenopathy. NEUROLOGICAL: Awake and alert. Motor and sensory grossly within normal limits. Follows commands. Speech nl. Moves all extremities. PSYCHIATRIC: No obvious anxiety/depression. no apparent hallucinations or other psychotic thought process. Laboratory Laboratory Tests Test 06/10/16 06/10/16 06/10/16 06/10/16 17:43 18:45 22:50 23:15 Sodium Level 137 137 Potassium Level 6.1 5.2 Chloride Level 104 107 Carbon Dioxide Level 25.3 19.3 Anion Gap 8 11 Blood Urea Nitrogen 17 17 Creatinine 0.99 0.93 Estimat Glomerular Filtration 76 81 Rate Random Glucose 176 123 Calcium Level 8.6 8.7 Magnesium Level 2.2 Total Bilirubin 0.4 Aspartate Amino Transf 19 (AST/SGOT) Alanine Aminotransferase 14 (ALT/SGPT) Alkaline Phosphatase 133 Total Creatine Kinase 27 Troponin I LESS THAN 0.02 Total Protein 5.8 Albumin 2.7 Bedside Hemoglobin 13.3 14.6 Bedside Hematocrit 39.0 43.0 Bedside Sodium 134 139 Bedside Potassium 7.4 4.4 Bedside Chloride 103 102 Bedside Blood Urea Nitrogen 19 19 Bedside Creatinine 1.0 1.0 Bedside Glucose 186 137 Pleural Fluid pH 6.7 Pleural Fluid WBC 07035 Pleural Fluid RBC 655097 Pleural Fluid Neutrophils 8 Pleural Fluid Lymphocytes 81 Pleural Fluid Monocytes 3 Pleural Fluid Eosinophils 2 Pleural Fluid Mesothelial 6 Cells Pleural Fluid Total Protein 3.2 Pleural Fluid LDH 236 Pleural Fluid Glucose 166 Pleural Fluid Amylase 43 Test 06/11/16 06/11/16 03:00 03:19 Nasal Screen MRSA (PCR) NEGATIVE White Blood Count 280.1 Red Blood Count 3.47 Hemoglobin 10.5 Hematocrit 33.7 Mean Corpuscular Volume 97.0 Mean Corpuscular Hemoglobin 30.2 Mean Corpuscular Hemoglobin 31.2 Concent Red Cell Distribution Width 15.2 Platelet Count 190 Mean Platelet Volume 7.6 Neutrophils (%) (Auto) Lymphocytes (%) (Auto) Monocytes (%) (Auto) Eosinophils (%) (Auto) Basophils (%) (Auto) Neutrophils # (Auto) Lymphocytes # (Auto) Monocytes # (Auto) Eosinophils # (Auto) Basophils # (Auto) CBC Comment AUTO DIFF Differential Total Cells 100 Counted Neutrophils % (Manual) 9 Lymphocytes % 89 Monocytes % 1 Eosinophils % 1 Neutrophils # (Manual) 25.2 Differential Comment FINAL DIFF MANUAL Smudge Cells PRESENT Platelet Estimate NORMAL Platelet Morphology Comment NORMAL Red Cell Morphology Comment NORMAL Sodium Level 143 Potassium Level 3.8 Chloride Level 108 Carbon Dioxide Level 25.8 Anion Gap 9 Blood Urea Nitrogen 18 Creatinine 0.86 Estimat Glomerular Filtration 89 Rate Random Glucose 138 Lactic Acid Level 0.8 Calcium Level 8.7 Phosphorus Level 3.4 Magnesium Level 2.1 Total Bilirubin 0.5 Aspartate Amino Transf 14 (AST/SGOT) Alanine Aminotransferase 12 (ALT/SGPT) Alkaline Phosphatase 115 Total Protein 4.9 Albumin 2.4 Date/Time Procedure Status Source Growth 06/10/16 23:59 Streptococcus pneumoniae Antigen (M - Final Complete Urine Catheterized Urine PRESUMPTIVE NEGATIVE FOR STREPTOCOCCU... 06/10/16 23:59 Legionella Antigen - Final Complete Urine Suprapubic Urine PRESUMPTIVE NEGATIVE FOR LEGIONELLA P... 06/10/16 22:50 Gram Stain - Final Resulted Fluid Pleural Fluid 06/10/16 22:50 Body Fluid Culture Resulted Fluid Pleural Fluid Pending 06/10/16 22:50 Fungal Smear - Final Resulted Fluid Pleural Fluid NO FUNGAL ELEMENTS SEEN. 06/10/16 22:50 Fungal Culture Resulted Fluid Pleural Fluid Pending 06/10/16 22:50 Acid Fast Stain Received Fluid Pleural Fluid Pending 06/10/16 22:50 Mycobacterial Culture Received Fluid Pleural Fluid Pending 06/10/16 22:25 Influenza Types A,B Antigen (ANSHU) - Final Complete Nasal Aspirate NEGATIVE FOR FLU A AND B ANTIGEN.... 06/10/16 18:20 Aerobic Blood Culture - Preliminary Resulted Blood Peripheral NO GROWTH IN 1 DAY 06/10/16 18:20 Anaerobic Blood Culture - Preliminary Resulted Blood Peripheral NO GROWTH IN 1 DAY Result Diagram: 06/11/169 06/11/[address] Angiography 06/10/16 1547 Signed Impressions: Service Date/Time: Friday, June 10, 2016 20:24 - CONCLUSION: 1. Negative for pulmonary embolus. 2. Extensive mediastinal and axillary adenopathy in patient with reported history of leukemia. 3. Moderate left effusion with compressive atelectasis left lower lung. Extensive bilateral airspace disease in the lungs. Findings nonspecific but differential diagnosis includes infection, edema and hypersensitivity pneumonitis. Manjeet Alvarado MD Chest X-Ray 06/10/16 1456 Signed Impressions: Service Date/Time: Wednesday, June 10, 2016 15:13 - CONCLUSION: 1. Abnormal chest x-ray. Moderate congestive failure is present. 2. Right paratracheal mass. 3. CT pulmonary angiogram is pending. Justin Hernández MD FACR Assessment and Plan Assessment and Plan CLL with extremely high WBC (in 300K range) per pt his baseline is around 50 K PNA, b/l with clinical improvement - cont current abx - fu P blood and pleurral fluid clx - sputum clx if feasible - no absolute contraindications for sterroids for his CLL, risk/benefits in favour of sterroids at this point for this pt with clinically improved infx and extremely high WBC - anticiapte eventual transition to oral meds Discussed Condition With Dr Driss Mckeon,Isabella Sun MD Jun 11, 2016 16:16
[2016-06-11 16:26] LABS: IMMUNOGLOBULIN A 14 MG/DL (133-294); IMMUNOGLOBULIN G 117 MG/DL (739-1450); IMMUNOGLOBULIN M LESS THAN 8 MG/DL (64-198)
--- NOTE | 2016-06-11 17:18 | MB ---
cc: Carlo DAVIS DATE OF CONSULTATION: 06/11/2016 HISTORY Mr. Liu is a 66-year-old white male taken care regularly at the [facility] who presented yesterday with increasing shortness of breath. Chest x-ray was abnormal with what appeared to be a large left pleural effusion and then a CT scan was done which revealed a large left pleural effusion, a left lower lobe infiltrate, some patchy infiltrates scattered in both lungs and mediastinal adenopathy. He was admitted with sepsis syndrome, probable pneumonia and respiratory insufficiency. He had 2 liters of serosanguineous fluid drained from the left chest and is feeling much better. Actually at the time of this consultation, he is sitting up on nasal oxygen eating his lunch in no distress and says he feels much better. The patient was a former smoker of about half-a-pack per day for 30-35 years, he quit smoking at 50. He has never been told he had emphysema, he has never been treated for significant chronic pulmonary disease and has never had pneumonia previously. However, he has had CLL for at least six years and is followed at [facility] in [place] by a sander wooden pencils there. He has had some chemotherapy as recently as nine months ago but since then his white blood cell counts have been followed. Apparently they have been gradually rising. He relates that when he was first diagnosed he had a white cell count of 500,000. Again, he has had no specific chemotherapy for this in at least the last six-to-nine months. They were waiting for his platelets to recover. He has had cough, congestion, low grade temperature, gradual increasing shortness of breath but no hemoptysis, no significant chest pain, no nausea, vomiting or abdominal pain, no diarrhea. No one has been ill around him. He has had no recent travel and the only animals at home are dogs and they have had those for some time. PAST MEDICAL HISTORY 1. Diabetes type 2. 2. Rosacea. 3. Squamous cell cancers of the scalp. 4. History of prior alcohol use but drinks only occasionally now on weekends. 5. PTSD. 6. Bipolar affective disorder. 7. CLL. 8. Osteoarthritis. 9. Hypertension. SOCIAL HISTORY , living with his of 40 years named Kaylee. Has never used significant illicit drugs in the past, smoked marijuana occasionally. Spent his time in the in [place], probably had Agent [place] exposure. PTSD after discharge. 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 REVIEW OF SYSTEMS Other than that noted above, no chronic edema, no recent skin rash, no reflux symptoms, no recent significant alcohol use. PHYSICAL EXAMINATION GENERAL: A thin white male, no acute distress. VITAL SIGNS: Afebrile, pulse 90, blood pressure 130/70 and respirations 18 at rest. HEENT: Sclerae are pale, anicteric. Mucous membranes are moist. NECK: Neck veins are not distended. CHEST: Chest is actually quite clear. No audible wheezes, a few rales at the left base otherwise clear. HEART: Regular rhythm. No harsh murmur. ABDOMEN: Abdomen is soft. EXTREMITIES: No peripheral edema. No calf tenderness or cyanosis. LABORATORY DATA Labs are notable for a white count of over 300,000, hemoglobin of 11, platelets normal at 206,000. PO2 yesterday on a partial non-rebreather: pO2 was 67 with a pH 7.4, pCO2 37. DISCUSSION Mr. Liu presents with a left lower lobe pneumonia, large left pleural effusion which has been drained. Fluid analysis is pending, cultures and cytology, fluid appears exudative based on initial chemistries. The patient has been started on broad-spectrum antibiotics and Infectious Disease has been consulted as he is immunocompromised from his underlying disease although he has not received any recent chemotherapy. He seems to have responded very well to initial therapy, feeling much better, very stable clinically. I have also asked hematology/oncology to see him in light of the marked elevation in white count. We will continue him on aerosol treatments, broad-spectrum antibiotics and monitor him in Intensive Care today. Sputum has been ordered, not yet collected. Further diagnostic and/or therapeutic intervention will depend on his response and ongoing clinical course. R. MD BEE Robert/GADIEL /2:39 PM /4:52 PM
[2016-06-11] MEDS: DEXAMETHASONE SOD PHOS 20 MG/5 ML VIAL IV PUSH SCH (18:15)
[2016-06-11] MEDS: AZITHROMYCIN INJ 500 MG in SODIUM CHLOR 0.9% 250 ML INJ 250 ML IV SCH (18:38)
[2016-06-11] MEDS ORDERED: diphenhydrAMINE HCL 50 MG/ML VIAL IV PUSH PRN (19:15)
[2016-06-11] MEDS ORDERED: EPINEPHrine HCL (1:1000) 1 MG/ML VIAL OTHER PRN (19:15)
[2016-06-11] MEDS: diphenhydrAMINE HCL 25 MG CAP PO SCH (19:20)
--- NOTE | 2016-06-11 19:37 | MB ---
cc: [facility], AZUL CHAVEZ MD DATE OF CONSULTATION: 06/11/2016 REASON FOR CONSULTATION: Patient with a history of chronic lymphocytic leukemia now presenting with hyperleukocytosis with a WBC count of close to 300,000. He also has diffuse lymphadenopathy. PRIMARY CARE PHYSICIANS: At the [facility] here in [place]. PRIMARY ONCOLOGIST: Dr. Ghosh at the [facility] in [facility]; Department of Oncology. REQUESTING PHYSICIAN: Consult requested by the critical care service. CHIEF COMPLAINT: Mr. Liu reports a 3-week history of increasing difficulty breathing associated with cough and malaise. He denies fevers or chills. HISTORY OF PRESENT ILLNESS: Mr. Liu is a 66-year-old male of the [employer] . He reports being diagnosed with chronic lymphocytic leukemia some six years ago. He reports having been on and off ___ therapy over the past six years. He tells me he has been under the care of Dr. Ghosh with the [facility] in [facility]. The patient most recently underwent treatment about six months ago. He does not recall the regimen. He reports his disease tends to be quite sensitive to chemotherapy allowing him to go on planned treatment interruptions. More acutely, the patient reports being in his usual state of health up until about two weeks ago. Since then, he began to notice increasing cough, malaise and difficulty breathing. He reported these symptoms to his primary care physician at the [facility] where he underwent a chest x-ray which revealed fluid bilaterally. He was noted to be hypoxic and tachypneic and was recommended admission to [facility]. He presented to our emergency department and was noted to be hypoxic on room air with 02 saturations as low as 88%. 02 supplementation was delivered. Imaging studies of the chest were obtained, specifically CT angiogram on 06/10/2016. This revealed bilateral pleural effusions, a diffuse parenchymal infiltrate involving bilateral lungs. He was also noted to have bulky mediastinal and axillary lymphadenopathy. No evidence of pulmonary embolus was identified. Additionally, blood work performed at [facility] reveals a WBC count at presentation of 324; the absolute lymphocyte count was almost 300,000. His hemoglobin and hematocrit were noted to be essentially normal with a normal platelet count. Quantitative immunoglobulins revealed an IgG level of 117, IgA level of 14 and IgM level less than 8. Blood flow cytometry is pending at this time. The oncology service in consulted for further workup and evaluation. Also over the course of hospitalization he did undergo a left-sided thoracentesis with drainage of about 2 liters of serosanguineous liquid. Analysis on this is pending. PAST MEDICAL HISTORY: 1. Chronic lymphocytic leukemia. 2. Personal history of tobaccoism. 3. Type 2 diabetes (on diet control). 4. History of squamous cell carcinoma of the skin. 5. History of alcohol abuse. 6. Bipolar disorder. 7. Depression. 8. PTSD. 9. Chronic lower back pain. 10. Hypertension. 11. Dyslipidemia. PAST SURGICAL HISTORY: Bone marrow biopsy. He also reports resection of multiple skin cancers. FAMILY HISTORY: No known oncologic diagnoses. SOCIAL HISTORY: He is , lives at home with his originally from [place]. Denies IV drug abuse. He smoked up until 20 years ago. He reports being a heavy alcohol drinker up until about five years ago. He is a of [place] with positive Agent [place] exposure. 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 ALLERGIES: 1. CITALOPRAM. 2. MIRTAZAPINE. 3. OLANZAPINE. 4. PAXIL. CURRENT INPATIENT MEDICATIONS: 1. IVIG dosed at 1 gram/kg x1. 2. Dexamethasone 20 milligrams IV daily x3. 3. Azithromycin 500 milligrams IV daily. 4. Ceftriaxone 1 gram IV daily. 5. Fluconazole 100 milligrams IV daily. 6. Zosyn 4.5 grams IV q. 6 hours. 7. Normal saline 84 cc/hour. 8. Vancomycin 1300 milligrams IV q. 12 hours. 9. A multivitamin infusion. 10. Tylenol as needed for fever. 11. Calcium gluconate replacement. 12. Colace 100 milligrams p.o. twice a day. 13. Lovenox 30 milligrams subcutaneous q. 24 hours. 14. Insulin sliding scale. REVIEW OF SYSTEMS: A thirteen point review of systems was obtained in addition to what is noted in the history of present illness and the patient reports fatigue, weakness, weight loss, decreased appetite, progressive lymphadenopathy, night sweats, difficulty breathing, cough. Denies chest pain, paroxysmal nocturnal dyspnea, orthopnea and denies nausea or vomiting, diarrhea, hematochezia or melena. UG: No complaints. THERAPY SITE COORDINATOR: No complaints. No other complaints noted. PHYSICAL EXAMINATION: VITAL SIGNS: Temperature 98.3 degrees Fahrenheit, heart rate 101 beats per minute. Respiratory is 19. Blood pressure 129/79, O2 sats 97% on 15% Neb-U-Mask. GENERAL: Mr. Liu is a middle-aged male, he is laying in bed, appears to be in mild respiratory distress, on high-flow oxygen. HEAD, EYES, EARS, NOSE, THROAT: Head is atraumatic and normocephalic. Conjunctivae are mildly pale. Sclerae anicteric, EOMI, PERRLA, oral exam with no pharyngeal erythema. NECK: Bilateral cervical lymphadenopathy. RESPIRATORY EXAM: Tachypneic, decreased bibasilar breath sounds. Rhonchi and crackles noted bilaterally. AXILLARY EXAMINATION: Bulky lymphadenopathy. CARDIOVASCULAR: Regular rhythm. Tachycardia. S1-S2. No obvious murmurs, rubs or gallops. ABDOMINAL EXAM: Protuberant, soft, nontender and nondistended. No palpable organ enlargement. LOWER EXTREMITIES: No pretibial edema or calf tenderness. THERAPY SITE COORDINATOR: No focal sensory or motor deficits. LABORATORY FINDINGS: CBC dated 06/11/2016: WBC count 280, hemoglobin 10.5 gm/dl, hematocrit 33.7%, total platelet count 190, absolute lymphocyte count approximately 260,000. Chemistries: Sodium 143, potassium 3.8, chloride 108, bicarb 26, BUN 18, creatinine 0.86, random glucose 138, lactic acid 0.8, calcium 8.7, phosphorus 3.4, magnesium 2.1, total bilirubin 0.5, AST 14, ALT 12, alkaline phosphatase 115, albumin 2.4. Immunoglobulins: IgG 117, IgA 14, IgM 8. Peripheral blood flow cytometry is pending. CT angiogram of the chest: 1. Negative for pulmonary embolus. 2. Extensive mediastinal and axillary lymphadenopathy. 3. Moderate left-sided pleural effusion with compressive atelectasis. 4. Extensive bilateral airspace disease in the lungs. ASSESSMENT: Mr. Liu is a 66-year-old male with CLL dating back six years. He reports being on and off systemic chemotherapy under the care of his dairy nutrition consultant at the [facility] for the past 6 years. His most recent treatment was about 6 months ago but he does not recall what regimen was used. He does however tell me that his disease is sensitive to chemotherapy and that his lymphadenopathy resolves with treatment as does his white cell count. He presents to the hospital with complaints of increasing difficulty breathing, fatigue and malaise. He was noted to have a white cell count of close to 330,000 at the time of admission. He was also noted be hypoxic. Imaging studies revealed patchy infiltrates bilaterally associated with bulky mediastinal lymphadenopathy and bilateral pleural effusions. So far during this hospitalization he has undergone a left-sided thoracentesis and is on multi-agent antibiotic therapy including fluconazole, vancomycin, Zosyn and azithromycin. The hematology service has been consulted for further workup and management. Also of note is severe hypogammaglobulinemia indicating severe hypogammaglobulinemia. RECOMMENDATIONS: 1. CLL: I will start him on pulse dose dexamethasone 20 mg IV daily for total of three doses. 2. Hypogammaglobulinemia: Start him on IVIG replacement to help boost his immune system so as to effectively counter the immunosuppression secondary to CLL. This will also help him recover from any underlying infection. 3. Continue DVT prophylaxis with Lovenox. 4. Daily CBCs have been ordered. 5. Obtain treatment records from the [facility]. MD NEAL Cristina/LORE /6:14 PM /7:16 PM
[2016-06-11] MEDS: ACETAMINOPHEN 325 MG TAB PO SCH (20:43)
[2016-06-11] MEDS: IMMUNE GLOBULIN INJ 80 GM in SYRINGE/BAG 1 EA IV SCH (20:50)
[2016-06-12] VITALS (14 sets, daily range): BP systolic 117–134; BP diastolic 57–68; PULSE 78–106; RESP 16–26; TEMP 97.7–98.2; O2SAT 92–95
[2016-06-12] MEDS: CHLORHEXIDINE GLUCONATE 2 % 1 PACK (2 CLOTHS) TOP SCH (03:06)
--- NOTE | 2016-06-12 04:02 | RADRPT ---
EXAM DATE/TIME: 06/12/2016 02:48 [facility] COMPARISON: CT PULMONARY ANGIOGRAM, June 10, 2016, 20:24. CHEST SINGLE AP, June 10, 2016, 21:35. INDICATIONS : Evaluate for respiratory failure. MEDICAL HISTORY : Leukemia. Diabetes mellitus type II. Skin cancer SURGICAL HISTORY : None. ENCOUNTER: Subsequent ACUITY: 3 days PAIN SCORE: Non-responsive. LOCATION: chest FINDINGS: Mild, patchy but fairly diffuse interstitial and alveolar opacities are again seen of both lungs, not significantly changed. No large effusion seen. No pneumothorax. Heart size stable, within normal limits. A large mass of the anterior and middle mediastinum again no erick. CONCLUSION: No significant change diffuse interstitial and alveolar pulmonary opacities. Large mediastinal mass a gain noted. Braxton Campuzano MD on June 12, 2016 at 3:58 Board Certified Radiologist. This report was verified electronically.
[2016-06-12 05:26] LABS: BLOOD GAS BASE EXCESS -0.6 mmol/L (-2-2); BLOOD GAS HCO3 23 mmol/L (22-26); BLOOD GAS METHEMOGLOBIN 0.8 % (0-2); BLOOD GAS O2 HGB SATURATION 90 % (90-100); BLOOD GAS OXYGEN CONTENT 12.1 Vol % (12.0-20.0); BLOOD GAS PCO2 34 mmHg (38-42); BLOOD GAS PO2 63 mmHg (61-120); BLOOD GAS TOTAL HGB 9.6 G/DL (12.0-16.0); CRITICAL VALUE NO; DRAW SITE RT RADIAL; LITER FLOW 6 L/M; NUMBER OF ARTERIAL PUNCTURES 1; OXYGEN DEVICE NASAL CANNULA; STAT NO; TEMP CORR TO 98.6; ULNAR PULSE PRESENT
[2016-06-12] MEDS: PIPERACIL-TAZO 4.5 GM PREMIX 100 ML IV SCH ×4 (05:41→22:00)
[2016-06-12 05:55] LABS: MEAN CELL VOLUME 100.8 FL (80.0-100.0); MEAN CORPUSCULAR HEMOGLOBIN 31.1 PG (27.0-34.0); MEAN CORPUSCULAR HGB CONC 30.8 % (32.0-36.0); PLATELET COUNT 156 TH/MM3 (150-450); RED BLOOD COUNT 3.07 MIL/MM3 (4.50-5.90); RED CELL DISTRIBUTION WIDTH 15.3 % (11.6-17.2); WHITE BLOOD COUNT 237.5 TH/MM3 (4.0-11.0)
[2016-06-12] MEDS: INSULIN NovoLIN REGULAR SUPPLEMENTAL SCALE SQ SCH ×4 (06:13→21:43)
[2016-06-12 06:24] LABS: ALKALINE PHOSPHATASE 101 U/L (45-117); ALT (GPT) 11 U/L (12-78); ANION GAP 8 MEQ/L (5-15); AST (GOT) 13 U/L (15-37); BICARBONATE 25.1 MEQ/L (21.0-32.0); BLOOD UREA NITROGEN 18 MG/DL (7-18); CHLORIDE 107 MEQ/L (98-107); GLOMERULAR FILTRATION RATE 79 ML/MIN (>89); MAGNESIUM 2.3 MG/DL (1.5-2.5); POTASSIUM 4.2 MEQ/L (3.5-5.1); SODIUM (NA) 140 MEQ/L (136-145); TOTAL BILIRUBIN ADULT 0.4 MG/DL (0.2-1.0)
[2016-06-12 06:28] LABS: HEMO FLAGS AUTO DIFF
[2016-06-12] MEDS: RESP: ALBUTEROL 2.5 MG/IPRATROPIUM 0.5 MG NEB (SCH) INH ×3 (07:33→15:29)
[2016-06-12] MEDS: DEXAMETHASONE SOD PHOS 20 MG/5 ML VIAL IV PUSH SCH (07:45)
[2016-06-12] MEDS: PANTOPRAZOLE SODIUM 40 MG VIAL IV SCH (07:46)
[2016-06-12] MEDS: SODIUM CHLORIDE 0.9% FLUSH 5 ML FLUSH IV FLUSH SCH ×2 (07:46→21:44)
[2016-06-12] MEDS: ARTIFICIAL TEARS OPTH SOLN 15 ML BTL EACH EYE SCH ×3 (07:46→17:13)
[2016-06-12] MEDS: DOCUSATE SODIUM 100 MG CAP PO SCH ×2 (07:46→21:00)
[2016-06-12] MEDS: MULTIVITAMIN INJ 10 ML, THIAMINE INJ 100 MG, FOLIC ACID INJ 1 MG in SODIUM CHLORID 0.9%... IV SCH (07:47)
[2016-06-12 08:06] LABS: NEUTROPHIL # MANUAL DIFF 2.4 TH/MM3 (1.8-7.7); POLYS (SEG NEUTROPHILS) 1 % (16-70); WBC DIFF SAMPLE 100
[2016-06-12 08:07] LABS: PLATELET ESTIMATE SMEAR NORMAL (NORMAL); PLATELET MORPHOLOGY NORMAL (NORMAL); SCAN/DIFF FINAL DIFF MANUAL
[2016-06-12 08:10] LABS: SMUDGE CELLS PRESENT PRESENT
[2016-06-12] MEDS: SODIUM CHLOR 0.9% 1000 ML INJ 1,000 ML IV SCH (10:45)
[2016-06-12] MEDS ORDERED: PHARMACY ORDERED LAB XX ONE (11:45)
[2016-06-12] MEDS: VANCOMYCIN INJ 1,300 MG in SODIUM CHLORID 0.9% 500 ML INJ 500 ML IV SCH (11:59)
--- NOTE | 2016-06-12 13:42 | HHI.PR ---
Subjective Remarks Follow-up respiratory failure/CLL 06/12/16-patient seen and examined; states she was up and did ambulate twice today. Denies any significant shortness of breath. Currently receiving IVIG as well as dexamethasone per oncology Objective Vitals Vital Signs Date Time Temp Pulse Resp B/P Pulse Ox O2 Delivery O2 Flow Rate FiO2 06/12/16 08:00 90 06/12/16 08:00 92 Nasal Cannula 6.00 06/12/16 08:00 97.7 90 26 120/59 92 06/12/16 07:35 94 Nasal Cannula 6.00 06/12/16 06:00 78 06/12/16 04:00 97.7 78 18 129/68 92 06/12/16 04:00 78 06/12/16 02:00 81 06/12/16 00:00 84 06/12/16 00:00 98.0 84 16 122/57 93 06/11/16 22:00 82 06/11/16 20:00 98.4 100 21 108/59 86 06/11/16 20:00 100 06/11/16 19:30 93 Nasal Cannula 5.00 06/11/16 19:00 93 Nasal Cannula 6.00 06/11/16 18:00 87 06/11/16 16:00 98.4 97 21 117/59 92 06/11/16 16:00 97 06/11/16 14:00 104 I/O 06/11/16 06/11/16 06/11/16 06/12/16 06/12/16 06/12/16 07:00 15:00 23:00 07:00 15:00 23:00 Intake Total 913 ml 1244 ml 508 ml 1569 ml Output Total 700 ml 500 ml 550 ml Balance 913 ml 544 ml 8 ml 1019 ml Intake Oral 480 ml IV Total 913 ml 764 ml 508 ml 1569 ml Output Urine Total 700 ml 500 ml 550 ml # Voids 0 # Bowel Movements 1 1 Result Diagram: 06/12/1642406/12/16424 Imaging Last Impressions Chest X-Ray 06/12/16 06 Signed Impressions: Service Date/Time: Sunday, June 12, 2016 02:48 - CONCLUSION: No significant change diffuse interstitial and alveolar pulmonary opacities. Large mediastinal mass again noted. Braxton Campuzano MD CT Angiography 06/10/16 1547 Signed Impressions: Service Date/Time: Friday, June 10, 2016 20:24 - CONCLUSION: 1. Negative for pulmonary embolus. 2. Extensive mediastinal and axillary adenopathy in patient with reported history of leukemia. 3. Moderate left effusion with compressive atelectasis left lower lung. Extensive bilateral airspace disease in the lungs. Findings nonspecific but differential diagnosis includes infection, edema and hypersensitivity pneumonitis. Manjeet Alvarado MD Objective Remarks GENERAL: NAD SKIN: Warm and dry. HEAD: Normocephalic. EYES: No scleral icterus. No injection or drainage. NECK: Supple, trachea midline. No JVD or lymphadenopathy. CARDIOVASCULAR: Regular rate and rhythm without murmurs, gallops, or rubs. RESPIRATORY: Breath sounds equal bilaterally. No accessory muscle use. GASTROINTESTINAL: Abdomen soft, non-tender, nondistended. MUSCULOSKELETAL: No cyanosis, or edema. BACK: Nontender without obvious deformity. No CVA tenderness. A/P Problem List: (1) CLL (chronic lymphocytic leukemia) ICD Code: C91.10 Status: Chronic (2) History of bipolar disorder ICD Code: Z86.59 Status: Acute (3) History of post traumatic stress disorder ICD Code: Z86.59 Status: Acute (4) Hyperkalemia ICD Code: E87.5 Status: Resolved (5) Pneumonia ICD Code: J18.9 Status: Acute (6) Respiratory failure ICD Code: J96.90 Status: Acute (7) Diabetes mellitus ICD Code: E11.9 Status: Acute (8) Posttraumatic stress disorder ICD Code: F43.10 Status: Acute (9) Agammaglobulinemia ICD Code: D80.1 Status: Acute (10) Hypertension ICD Code: I10 Status: Acute (11) Osteoarthritis ICD Code: M19.90 Status: Acute (12) Severe sepsis ICD Code: A41.9 Status: Acute Assessment and Plan 66-year-old male with Acute hypoxemic respiratory failure-resolved - Left pleural effusion-1 L serosanguineous from left-sided thoracentesis. - Community-acquired pneumonia - Bronchodilator therapy every 4 hours and as needed - Pulmonary consultation Bipolar disorder/Depression - Patient is not currently on any anti-psychiatric medications Hypertension - Normotensive - Not requiring any anti-hypertensives and or vasopressors Diabetes mellitus type 2 - Hold metformin while in the ICU - Continue sliding scale insulin to maintain euglycemia/moderate regimen CLL - sees Dr. Steele/[facility] - Currently on IVIG and dexamethasone 20 mg daily until 06/13/16 per oncology -Continue to monitor WBC Bronchopneumonia/community-acquired - Vancomycin, Zosyn/Zithromax (community-acquired pneumonia. - Patient is on Diflucan 100 mg by mouth daily and Bactrim 1 tablet every Wednesday /Wednesday for infection. - Blood cultures 2, sputum, influenza, urine Legionella and pneumococcal antigens, chlamydia and mycoplasma antibodies are pending - Appreciate input from ID Prophylaxis - GI - Protonix - DVT - SCD/heparin subcutaneous Problem Qualifiers (1) Pneumonia: Qualified Code: J18.9 - Pneumonia of both lungs due to infectious organism, unspecified part of lung (2) Respiratory failure: Qualified Code: J96.01 - Acute respiratory failure with hypoxia and hypercapnia (3) Diabetes mellitus: Qualified Code: E11.8 - Type 2 diabetes mellitus with complication, without long-term current use of insulin (4) Hypertension: Qualified Code: I10 - Essential hypertension (5) Osteoarthritis: Qualified Code: M19.90 - Osteoarthritis, unspecified osteoarthritis type, unspecified site Pierce Miller MD Jun 12, 2016 13:42 Qualified Code: J96.01 - Acute respiratory failure with hypoxia and hypercapnia (3) Diabetes mellitus: Qualified Code: E11.8 - Type 2 diabetes mellitus with complication, without long-term current use of insulin (4) Hypertension: Qualified Code: I10 - Essential hypertension (5) Osteoarthritis: Qualified Code: M19.90 - Osteoarthritis, unspecified osteoarthritis type, unspecified site Pierce Miller MD Jun 12, 2016 13:42
--- NOTE | 2016-06-12 18:00 | PD.ONC.PN ---
Subjective Subjective Remarks Mr. Liu reports feeling better today, his breathing is improved and he reports being to get up out of bed and walking the hallways without difficulty. He denies having any fevers or chills. Reports his appetite is improved as has his energy level. Overnight he received IVIG and was given his first dose of pulse dexamethasone 20 mg IV (1 of 3 planned doses). Broad-spectrum antibiotics continued. Chest x-ray from earlier today was reviewed and this reveals stable interstitial findings. Objective Data Date Time Temp Pulse Resp B/P Pulse Ox O2 Delivery O2 Flow Rate FiO2 06/12/16 17:20 95 Nasal Cannula 3.00 06/12/16 16:00 102 06/12/16 16:00 97.8 102 20 123/59 95 06/12/16 14:20 95 Nasal Cannula 4.50 06/12/16 14:00 99 06/12/16 12:00 100 06/12/16 12:00 97.7 101 20 134/60 95 06/12/16 10:00 84 06/12/16 08:00 90 06/12/16 08:00 92 Nasal Cannula 6.00 06/12/16 08:00 97.7 90 26 120/59 92 06/12/16 07:35 94 Nasal Cannula 6.00 06/12/16 06:00 78 06/12/16 04:00 97.7 78 18 129/68 92 06/12/16 04:00 78 06/12/16 02:00 81 06/12/16 00:00 84 06/12/16 00:00 98.0 84 16 122/57 93 06/11/16 22:00 82 06/11/16 20:00 98.4 100 21 108/59 86 06/11/16 20:00 100 06/11/16 19:30 93 Nasal Cannula 5.00 06/11/16 19:00 93 Nasal Cannula 6.00 06/11/16 18:00 87 06/12/16 06/12/16 06/12/16 07:00 15:00 23:00 Intake Total 1569 ml 1881 ml Output Total 550 ml 575 ml Balance 1019 ml 1306 ml Result Diagram: 06/12/16 0425 06/12/16 0425 Laboratory Results Laboratory Tests Test 06/12/16 06/12/16 06/12/16 04:25 05:15 11:50 White Blood Count 237.5 TH/MM3 Red Blood Count 3.07 MIL/MM3 Hemoglobin 9.5 GM/DL Hematocrit 31.0 % Mean Corpuscular Volume 100.8 FL Mean Corpuscular Hemoglobin 31.1 PG Mean Corpuscular Hemoglobin 30.8 % Concent Red Cell Distribution Width 15.3 % Platelet Count 156 TH/MM3 Mean Platelet Volume 7.6 FL Neutrophils (%) (Auto) % Lymphocytes (%) (Auto) % Monocytes (%) (Auto) % Eosinophils (%) (Auto) % Basophils (%) (Auto) % Neutrophils # (Auto) TH/MM3 Lymphocytes # (Auto) TH/MM3 Monocytes # (Auto) TH/MM3 Eosinophils # (Auto) TH/MM3 Basophils # (Auto) TH/MM3 CBC Comment AUTO DIFF Differential Total Cells 100 Counted Neutrophils % (Manual) 1 % Lymphocytes % 99 % Neutrophils # (Manual) 2.4 TH/MM3 Differential Comment FINAL DIFF MANUAL Smudge Cells PRESENT Platelet Estimate NORMAL Platelet Morphology Comment NORMAL Sodium Level 140 MEQ/L Potassium Level 4.2 MEQ/L Chloride Level 107 MEQ/L Carbon Dioxide Level 25.1 MEQ/L Anion Gap 8 MEQ/L Blood Urea Nitrogen 18 MG/DL Creatinine 0.95 MG/DL Estimat Glomerular Filtration 79 ML/MIN Rate Random Glucose 245 MG/DL Calcium Level 7.9 MG/DL Phosphorus Level 2.7 MG/DL Magnesium Level 2.3 MG/DL Total Bilirubin 0.4 MG/DL Aspartate Amino Transf 13 U/L (AST/SGOT) Alanine Aminotransferase 11 U/L (ALT/SGPT) Alkaline Phosphatase 101 U/L Total Protein 5.9 GM/DL Albumin 2.2 GM/DL Blood Gas Puncture Site RT RADIAL Blood Gas Patient Temperature 98.6 Blood Gas HCO3 23 mmol/L Blood Gas Base Excess -0.6 mmol/L Blood Gas Oxygen Saturation 90 % Arterial Blood pH 7.45 Arterial Blood Partial 34 mmHg Pressure CO2 Arterial Blood Partial 63 mmHg Pressure O2 Arterial Blood Oxygen Content 12.1 Vol % Arterial Blood 2.0 % Carboxyhemoglobin Arterial Blood Methemoglobin 0.8 % Blood Gas Hemoglobin 9.6 G/DL Oxygen Delivery Device NASAL CANNULA Blood Gas Liter Flow 6 L/M Vancomycin Level Trough 12.5 MCG/ML Culture Results Microbiology Date/Time Procedure Status Source Growth 06/10/16 18:15 Aerobic Blood Culture - Preliminary Resulted Blood Peripheral NO GROWTH IN 2 DAYS 06/10/16 18:15 Anaerobic Blood Culture - Preliminary Resulted Blood Peripheral NO GROWTH IN 2 DAYS 06/10/16 18:20 Aerobic Blood Culture - Preliminary Resulted Blood Peripheral NO GROWTH IN 2 DAYS 06/10/16 18:20 Anaerobic Blood Culture - Preliminary Resulted Blood Peripheral NO GROWTH IN 2 DAYS 06/10/16 22:25 Influenza Types A,B Antigen (ANSHU) - Final Complete Nasal Aspirate NEGATIVE FOR FLU A AND B ANTIGEN.... 06/10/16 22:50 Acid Fast Stain - Final Resulted Fluid Pleural Fluid NO ACID FAST BACILLI SEEN 06/10/16 22:50 Mycobacterial Culture Resulted Fluid Pleural Fluid Pending 06/10/16 22:50 Fungal Smear - Final Resulted Fluid Pleural Fluid NO FUNGAL ELEMENTS SEEN. 06/10/16 22:50 Fungal Culture Resulted Fluid Pleural Fluid Pending 06/10/16 22:50 Gram Stain - Final Resulted Fluid Pleural Fluid 06/10/16 22:50 Body Fluid Culture - Preliminary Resulted Fluid Pleural Fluid NO GROWTH IN 24 HOURS. 06/10/16 23:59 Legionella Antigen - Final Complete Urine Suprapubic Urine PRESUMPTIVE NEGATIVE FOR LEGIONELLA P... 06/10/16 23:59 Streptococcus pneumoniae Antigen (M - Final Complete Urine Catheterized Urine PRESUMPTIVE NEGATIVE FOR STREPTOCOCCU... Imaging Studies Last 24 hours Impressions Chest X-Ray 06/12/16 0600 Signed Impressions: Service Date/Time: Sunday, June 12, 2016 02:48 - CONCLUSION: No significant change diffuse interstitial and alveolar pulmonary opacities. Large mediastinal mass again noted. Braxton Campuzano MD Administered Medications Medications (Trade) Dose Ordered Sig/Tanesha Route PRN Reason Start Time Stop Time Status Last Admin Dose Admin IV Flush (NS Flush) 2 ml BID IV FLUSH 06/11/16 09:00 06/12/16 07:46 Artificial Tears (Tears Naturale Opth Soln) 1 drop TID EACH EYE 06/11/16 09:00 06/12/16 17:13 Docusate Sodium (Colace) 100 mg BID PO 06/11/16 09:00 06/11/16 20:43 Enoxaparin Sodium (Lovenox Inj) 30 mg Q24H SQ 06/10/16 23:00 06/11/16 22:48 Chlorhexidine Gluconate 3 pack 3 pack Taper DAILY@04 TOP 06/11/16 04:00 06/07/17 03:59 06/12/16 03:06 Piperacillin Sod/ Tazobactam Sod 100 ml @ 200 mls/hr Q6H IV 06/10/16 23:00 06/12/16 17:13 Azithromycin 500 mg/Sodium Chloride 250 ml @ 250 mls/hr Q24H IV 06/11/16 18:00 06/11/16 18:38 Fluconazole/ Sodium Chloride 50 ml @ 50 mls/hr Q24H IV 06/10/16 23:00 06/11/16 20:52 Multivitamins/ Thiamine HCl/ Folic Acid/Sodium Chloride (Mvi-12 Inj/ Thiamine Inj/ Folvite Inj/NS 500 ml Inj) 511.2 ml @ 125 mls/hr DAILY IV 06/10/16 23:00 06/13/16 22:59 06/12/16 07:47 Acetaminophen (Tylenol) 650 mg Q24H PO 06/11/16 20:00 06/12/16 20:01 06/11/16 20:43 Diphenhydramine HCl 25 mg 25 mg Q24H PO 06/11/16 20:00 06/12/16 20:01 06/11/16 19:20 Immune Globulin/ Syringe / Bag (Privigen Inj/ Syringe/Bag) 800 ml @ 24.27 mls/ hr Q24H IV 06/11/16 21:00 06/13/16 20:59 06/11/16 20:50 Dexamethasone Sodium Phosphate (Decadron Inj) 20 mg DAILY IV PUSH 06/11/16 18:15 06/13/16 09:01 06/12/16 07:45 Objective Remarks GENERAL: Mr. Liu is a middle-aged male, sitting up in bed, breathing very comfortably, having dinner. On nasal cannula. HEAD, EYES, EARS, NOSE, THROAT: Head is atraumatic and normocephalic. Conjunctivae are mildly pale. Sclerae anicteric, EOMI, PERRLA, oral exam with no pharyngeal erythema. NECK: Bilateral cervical lymphadenopathy. RESPIRATORY EXAM: Regular rate and rhythm, good air movement bilaterally, improved by basilar breath sounds, no wheezes or rhonchi. AXILLARY EXAMINATION: Bulky lymphadenopathy. CARDIOVASCULAR: Regular rhythm. Regular rate, S1-S2. No obvious murmurs, rubs or gallops. ABDOMINAL EXAM: Protuberant, soft, nontender and nondistended. No palpable organ enlargement. LOWER EXTREMITIES: No pretibial edema or calf tenderness. INTEGRATION PROJECT MANAGER: No focal sensory or motor deficits. Assessment/Plan Assessment Mr. Liu is a 66-year-old male with CLL dating back six years. He reports being on and off systemic chemotherapy under the care of his farm service consultant at the [facility] for the past 6 years. His most recent treatment was about 6 months ago but he does not recall what regimen was used. He does however tell me that his disease is sensitive to chemotherapy and that his lymphadenopathy resolves with treatment as does his white cell count. He presents to the hospital with complaints of increasing difficulty breathing, fatigue and malaise. He was noted to have a white cell count of close to 330,000 at the time of admission. He was also noted be hypoxic. Imaging studies revealed patchy infiltrates bilaterally associated with bulky mediastinal lymphadenopathy and bilateral pleural effusions. So far during this hospitalization he has undergone a left-sided thoracentesis and is on multi-agent antibiotic therapy including fluconazole, vancomycin, Zosyn and azithromycin. The hematology service has been consulted for further workup and management. Also of note is severe hypogammaglobulinemia indicating severe hypogammaglobulinemia. Plan 1. Chronic lymphocytic leukemia: Continue pulse dosed dexamethasone 20 mg IV daily. His total white cell count is down from 320 down to 230 over the past 48 hours. Continue trending. I will hold off on initiating him on inpatient systemic therapy as I'm not aware of his previous treatment regimens. Also I'm not certain there is any absolute need to initiate him on inpatient systemic therapy. He does have a farm service consultant in [facility]; at the [facility] ( Dr. Ghosh). I've advised Mr. Liu to see Dr. Ghosh within a few days of his discharge from this hospital. 2. Hypogammaglobulinemia: Status post IVIG 1 infusion on 06/11/2016. 3. Anemia: Haptoglobin is elevated, he likely does not have hemolysis, the anemia is likely due to decreased marrow synthetic function due to CLL involvement. Continue ongoing care. Se Naqvi MD Jun 12, 2016 18:00
[2016-06-12] MEDS: AZITHROMYCIN INJ 500 MG in SODIUM CHLOR 0.9% 250 ML INJ 250 ML IV SCH (18:13)
[2016-06-12] MEDS: diphenhydrAMINE HCL 25 MG CAP PO SCH (20:15)
[2016-06-12] MEDS: ACETAMINOPHEN 325 MG TAB PO SCH (20:16)
[2016-06-12 21:13] LABS: MEAN CORPUSCULAR HGB CONC 29.2 % (32.0-36.0)
[2016-06-12] MEDS: IMMUNE GLOBULIN INJ 80 GM in SYRINGE/BAG 1 EA IV SCH (21:44)
[2016-06-12] MEDS: FLUCONAZOLE 100 MG PREMIX BAG 50 ML IV SCH (22:00)
[2016-06-12] MEDS: ENOXAPARIN SODIUM 30 MG/0.3 ML SYRINGE SQ SCH (22:00)
[2016-06-13] VITALS (10 sets, daily range): BP systolic 121–178; BP diastolic 59–81; PULSE 75–100; RESP 19–25; TEMP 97.2–98.5; O2SAT 87–97
[2016-06-13] MEDS: VANCOMYCIN 1,500 MG/NS 500 ML IV SCH ×4 (00:08→12:59)
[2016-06-13] MEDS: CHLORHEXIDINE GLUCONATE 2 % 1 PACK (2 CLOTHS) TOP SCH (04:00)
[2016-06-13] MEDS: PIPERACIL-TAZO 4.5 GM PREMIX 100 ML IV SCH ×4 (05:04→23:03)
[2016-06-13] MEDS: INSULIN NovoLIN REGULAR SUPPLEMENTAL SCALE SQ SCH ×4 (05:04→21:02)
[2016-06-13 05:54] LABS: HEMATOCRIT 31.5 % (39.0-51.0); MEAN CELL VOLUME 106.9 FL (80.0-100.0); MEAN CORPUSCULAR HEMOGLOBIN 31.2 PG (27.0-34.0); PLATELET COUNT 139 TH/MM3 (150-450); RED BLOOD COUNT 2.95 MIL/MM3 (4.50-5.90); RED CELL DISTRIBUTION WIDTH 16.6 % (11.6-17.2); WHITE BLOOD COUNT 229.7 TH/MM3 (4.0-11.0)
[2016-06-13 06:03] LABS: HEMO FLAGS AUTO DIFF
[2016-06-13 06:24] LABS: BICARBONATE 17.5 MEQ/L (21.0-32.0)
[2016-06-13] MEDS: RESP: ALBUTEROL 2.5 MG/IPRATROPIUM 0.5 MG NEB (SCH) INH ×3 (07:18→20:08)
[2016-06-13] MEDS: DOCUSATE SODIUM 100 MG CAP PO SCH ×2 (07:35→21:00)
[2016-06-13] MEDS: DEXAMETHASONE SOD PHOS 20 MG/5 ML VIAL IV PUSH SCH (07:49)
[2016-06-13] MEDS: PANTOPRAZOLE SOD 40 MG DELAYED RELEASE TAB PO SCH (07:49)
[2016-06-13] MEDS: ARTIFICIAL TEARS OPTH SOLN 15 ML BTL EACH EYE SCH ×3 (07:50→17:03)
[2016-06-13] MEDS: SODIUM CHLORIDE 0.9% FLUSH 5 ML FLUSH IV FLUSH SCH ×2 (07:50→21:02)
[2016-06-13] MEDS: MULTIVITAMIN INJ 10 ML, THIAMINE INJ 100 MG, FOLIC ACID INJ 1 MG in SODIUM CHLORID 0.9%... IV SCH (07:55)
[2016-06-13 08:39] LABS: NEUTROPHIL # MANUAL DIFF 6.9 TH/MM3 (1.8-7.7); POLYS (SEG NEUTROPHILS) 3 % (16-70); WBC DIFF SAMPLE 100
[2016-06-13 08:40] LABS: SMUDGE CELLS PRESENT PRESENT
[2016-06-13 08:41] LABS: PLATELET ESTIMATE SMEAR LOW (NORMAL); PLATELET MORPHOLOGY NORMAL (NORMAL); SCAN/DIFF FINAL DIFF MANUAL
--- NOTE | 2016-06-13 09:22 | PD.ONC.PN ---
Subjective Subjective Remarks Afebrile overnight. Patient states he feels very good today. He states he has been walking in the hallway with a walker. He states his shortness of breath is much improved. Objective Data Date Time Temp Pulse Resp B/P Pulse Ox O2 Delivery O2 Flow Rate FiO2 06/13/16 07:21 93 Nasal Cannula 4.00 06/13/16 06:00 75 06/13/16 04:00 79 06/13/16 04:00 98.3 79 25 140/77 93 06/13/16 02:00 85 06/13/16 00:00 81 06/13/16 00:00 97.7 81 20 121/59 93 06/12/16 22:00 89 06/12/16 20:00 89 06/12/16 20:00 98.2 90 23 117/63 93 06/12/16 19:16 94 Nasal Cannula 4.00 06/12/16 19:00 91 Nasal Cannula 4.00 06/12/16 18:00 106 06/12/16 17:20 95 Nasal Cannula 3.00 06/12/16 16:00 102 06/12/16 16:00 97.8 102 20 123/59 95 06/12/16 14:20 95 Nasal Cannula 4.50 06/12/16 14:00 99 06/12/16 12:00 100 06/12/16 12:00 97.7 101 20 134/60 95 06/12/16 10:00 84 06/13/16 06/13/16 06/13/16 07:00 15:00 23:00 Intake Total 2167 ml Output Total 830 ml Balance 1337 ml Result Diagram: 06/13/16 0501 06/13/16 0501 Laboratory Results Laboratory Tests Test 06/12/16 06/13/16 11:50 05:01 Vancomycin Level Trough 12.5 MCG/ML White Blood Count 229.7 TH/MM3 Red Blood Count 2.95 MIL/MM3 Hemoglobin 9.2 GM/DL Hematocrit 31.5 % Mean Corpuscular Volume 106.9 FL Mean Corpuscular Hemoglobin 31.2 PG Mean Corpuscular Hemoglobin 29.2 % Concent Red Cell Distribution Width 16.6 % Platelet Count 139 TH/MM3 Mean Platelet Volume 8.0 FL Neutrophils (%) (Auto) % Lymphocytes (%) (Auto) % Monocytes (%) (Auto) % Eosinophils (%) (Auto) % Basophils (%) (Auto) % Neutrophils # (Auto) TH/MM3 Lymphocytes # (Auto) TH/MM3 Monocytes # (Auto) TH/MM3 Eosinophils # (Auto) TH/MM3 Basophils # (Auto) TH/MM3 CBC Comment AUTO DIFF Differential Total Cells 100 Counted Neutrophils % (Manual) 3 % Lymphocytes % 97 % Neutrophils # (Manual) 6.9 TH/MM3 Differential Comment FINAL DIFF MANUAL Smudge Cells PRESENT Platelet Estimate LOW Platelet Morphology Comment NORMAL Hematology Comments Sodium Level 138 MEQ/L Potassium Level 4.0 MEQ/L Chloride Level 111 MEQ/L Carbon Dioxide Level 17.5 MEQ/L Anion Gap 10 MEQ/L Blood Urea Nitrogen 17 MG/DL Creatinine 0.92 MG/DL Estimat Glomerular Filtration 82 ML/MIN Rate Random Glucose 121 MG/DL Calcium Level 8.3 MG/DL Culture Results Microbiology Date/Time Procedure Status Source Growth 06/10/16 18:15 Aerobic Blood Culture - Preliminary Resulted Blood Peripheral NO GROWTH IN 2 DAYS 06/10/16 18:15 Anaerobic Blood Culture - Preliminary Resulted Blood Peripheral NO GROWTH IN 2 DAYS 06/10/16 18:20 Aerobic Blood Culture - Preliminary Resulted Blood Peripheral NO GROWTH IN 2 DAYS 06/10/16 18:20 Anaerobic Blood Culture - Preliminary Resulted Blood Peripheral NO GROWTH IN 2 DAYS 06/10/16 22:25 Influenza Types A,B Antigen (ANSHU) - Final Complete Nasal Aspirate NEGATIVE FOR FLU A AND B ANTIGEN.... 06/10/16 22:50 Acid Fast Stain - Final Resulted Fluid Pleural Fluid NO ACID FAST BACILLI SEEN 06/10/16 22:50 Mycobacterial Culture Resulted Fluid Pleural Fluid Pending 06/10/16 22:50 Fungal Smear - Final Resulted Fluid Pleural Fluid NO FUNGAL ELEMENTS SEEN. 06/10/16 22:50 Fungal Culture Resulted Fluid Pleural Fluid Pending 06/10/16 22:50 Gram Stain - Final Resulted Fluid Pleural Fluid 06/10/16 22:50 Body Fluid Culture - Preliminary Resulted Fluid Pleural Fluid NO GROWTH IN 24 HOURS. 06/10/16 23:59 Legionella Antigen - Final Complete Urine Suprapubic Urine PRESUMPTIVE NEGATIVE FOR LEGIONELLA P... 06/10/16 23:59 Streptococcus pneumoniae Antigen (M - Final Complete Urine Catheterized Urine PRESUMPTIVE NEGATIVE FOR STREPTOCOCCU... Administered Medications Medications (Trade) Dose Ordered Sig/Tanesha Route PRN Reason Start Time Stop Time Status Last Admin Dose Admin IV Flush (NS Flush) 2 ml BID IV FLUSH 06/11/16 09:00 06/13/16 07:50 Morphine Sulfate (Morphine Inj) 2 mg Q2H PRN IV PAIN SCALE 6 TO 10 06/10/16 22:15 06/13/16 05:04 Artificial Tears (Tears Naturale Opth Soln) 1 drop TID EACH EYE 06/11/16 09:00 06/13/16 07:50 Docusate Sodium (Colace) 100 mg BID PO 06/11/16 09:00 06/11/16 20:43 Enoxaparin Sodium (Lovenox Inj) 30 mg Q24H SQ 06/10/16 23:00 06/12/16 22:00 Chlorhexidine Gluconate 3 pack 3 pack Taper DAILY@04 TOP 06/11/16 04:00 06/07/17 03:59 06/12/16 03:06 Piperacillin Sod/ Tazobactam Sod 100 ml @ 200 mls/hr Q6H IV 06/10/16 23:00 06/13/16 05:04 Azithromycin 500 mg/Sodium Chloride 250 ml @ 250 mls/hr Q24H IV 06/11/16 18:00 06/12/16 18:13 Fluconazole/ Sodium Chloride 50 ml @ 50 mls/hr Q24H IV 06/10/16 23:00 06/12/16 22:00 Multivitamins 10 ml/Thiamine HCl 100 mg/Folic Acid 1 mg/Sodium Chloride 511.2 ml @ 125 mls/hr DAILY IV 06/10/16 23:00 06/13/16 22:59 06/13/16 07:55 Immune Globulin/ Syringe / Bag (Privigen Inj/ Syringe/Bag) 800 ml @ 24.27 mls/ hr Q24H IV 06/11/16 21:00 06/13/16 20:59 06/12/16 21:44 Pantoprazole Sodium 40 mg 40 mg DAILY PO 06/13/16 09:00 06/13/16 07:49 Vancomycin HCl/ Sodium Chloride (Vancomycin Inj/ NS 500 ml Inj) 515 ml @ 257.5 mls/ hr Q12H IV 06/13/16 00:00 06/13/16 00:08 Objective Remarks GENERAL: Older male sitting up in bed in no distress. SKIN: Warm and dry. Multiple tattoos HEAD: Normocephalic. EYES: No injection or drainage. NECK: Supple, trachea midline. CARDIOVASCULAR: S1/S2. No murmur appreciated. RESPIRATORY: Lungs clear to L. R side has course crackles to lower contreras. On 4L NC. Breathing unlabored. GASTROINTESTINAL: Abdomen soft, non-tender, nondistended. EXTREMITIES: No edema. NEUROLOGICAL: No obvious focal deficit. Awake, alert, and oriented x3. Assessment/Plan Assessment Mr. Liu is a 66-year-old male with CLL dating back six years. He reports being on and off systemic chemotherapy under the care of his credit department manager at the [facility] for the past 6 years. His most recent treatment was about 6 months ago but he does not recall what regimen was used. He does however tell me that his disease is sensitive to chemotherapy and that his lymphadenopathy resolves with treatment as does his white cell count. He presents to the hospital with complaints of increasing difficulty breathing, fatigue and malaise. He was noted to have a white cell count of close to 330,000 at the time of admission. He was also noted be hypoxic. Imaging studies revealed patchy infiltrates bilaterally associated with bulky mediastinal lymphadenopathy and bilateral pleural effusions. So far during this hospitalization he has undergone a left-sided thoracentesis and is on multi-agent antibiotic therapy including fluconazole, vancomycin, Zosyn and azithromycin. The hematology service has been consulted for further workup and management. Also of note is severe hypogammaglobulinemia indicating severe hypogammaglobulinemia. Plan 1. Chronic lymphocytic leukemia: He received his third and final pulse dose of dexamethasone 20 mg IV this am. His total white cell count is down from 320 down to 229 over the past 72 hours. Continue trending. I will hold off on initiating him on inpatient systemic therapy as I'm not aware of his previous treatment regimens. Also I'm not certain there is any absolute need to initiate him on inpatient systemic therapy. He does have a credit department manager in [facility]; at the [facility] (Dr. Ghosh). I've advised Mr. Liu to see Dr. Ghosh within a few days of his discharge from this hospital. 2. Hypogammaglobulinemia: Second dose of IVIG currently infusing. This will be the last dose of immunoglobulins at this time. 3. Anemia: Haptoglobin is elevated, he likely does not have hemolysis, the anemia is likely due to decreased marrow synthetic function due to CLL involvement. 4. Continue IV Abx Attending Statement The exam, history, and the medical decision-making described in the above note were completed with the assistance of the mid-level provider. I reviewed and agree with the findings presented. I attest that I had a [id number] encounter with the patient on the same day, and personally performed and documented my assessment and findings in the medical record. he feels better. the ct of thorax reviewed and he has massive mediastinal adenopathy and will require tx soon. I suggested to him that he speak to his md about ibrutinib. [facility] if possible. In meantime would continue to tx his pneumnonia with antibiotics and await the cytology from the pleural fluid. Emily Matos Jun 13, 2016 09:22 Abimael Gutierrez MD Jun 13, 2016 16:07
--- NOTE | 2016-06-13 10:42 | HHI.PR ---
Subjective Remarks Follow-up respiratory failure/CLL 06/12/16-patient seen and examined; states she was up and did ambulate twice today. Denies any significant shortness of breath. Currently receiving IVIG as well as dexamethasone per oncology 06/13/16-patient seen and examined; stable and no complaint. Afebrile. Denies any chest pain or shortness of breath. Objective Vitals Vital Signs Date Time Temp Pulse Resp B/P Pulse Ox O2 Delivery O2 Flow Rate FiO2 06/13/16 07:21 93 Nasal Cannula 4.00 06/13/16 06:00 75 06/13/16 04:00 79 06/13/16 04:00 98.3 79 25 140/77 93 06/13/16 02:00 85 06/13/16 00:00 81 06/13/16 00:00 97.7 81 20 121/59 93 06/12/16 22:00 89 06/12/16 20:00 89 06/12/16 20:00 98.2 90 23 117/63 93 06/12/16 19:16 94 Nasal Cannula 4.00 06/12/16 19:00 91 Nasal Cannula 4.00 06/12/16 18:00 106 06/12/16 17:20 95 Nasal Cannula 3.00 06/12/16 16:00 102 06/12/16 16:00 97.8 102 20 123/59 95 06/12/16 14:20 95 Nasal Cannula 4.50 06/12/16 14:00 99 06/12/16 12:00 100 06/12/16 12:00 97.7 101 20 134/60 95 I/O 06/12/16 06/12/16 06/12/16 06/13/16 06/13/16 06/13/16 07:00 15:00 23:00 07:00 15:00 23:00 Intake Total 1569 ml 1881 ml 480 ml 2167 ml Output Total 550 ml 575 ml 450 ml 830 ml Balance 1019 ml 1306 ml 30 ml 1337 ml Intake Oral 560 ml 480 ml 480 ml IV Total 1569 ml 1321 ml 1687 ml Output Urine Total 550 ml 575 ml 450 ml 830 ml # Voids 3 # Bowel Movements 1 2 1 Result Diagram: 06/13/16 0501 06/13/16 0501 Objective Remarks GENERAL: NAD SKIN: Warm and dry. HEAD: Normocephalic. EYES: No scleral icterus. No injection or drainage. NECK: Supple, trachea midline. No JVD or lymphadenopathy. CARDIOVASCULAR: Regular rate and rhythm without murmurs, gallops, or rubs. RESPIRATORY: Breath sounds equal bilaterally. No accessory muscle use. GASTROINTESTINAL: Abdomen soft, non-tender, nondistended. MUSCULOSKELETAL: No cyanosis, or edema. BACK: Nontender without obvious deformity. No CVA tenderness. A/P Problem List: (1) CLL (chronic lymphocytic leukemia) ICD Code: C91.10 Status: Chronic (2) History of bipolar disorder ICD Code: Z86.59 Status: Acute (3) History of post traumatic stress disorder ICD Code: Z86.59 Status: Acute (4) Hyperkalemia ICD Code: E87.5 Status: Resolved (5) Pneumonia ICD Code: J18.9 Status: Acute (6) Respiratory failure ICD Code: J96.90 Status: Acute (7) Diabetes mellitus ICD Code: E11.9 Status: Acute (8) Posttraumatic stress disorder ICD Code: F43.10 Status: Acute (9) Agammaglobulinemia ICD Code: D80.1 Status: Acute (10) Hypertension ICD Code: I10 Status: Acute (11) Osteoarthritis ICD Code: M19.90 Status: Acute (12) Severe sepsis ICD Code: A41.9 Status: Acute Assessment and Plan 66-year-old male with Acute hypoxemic respiratory failure-resolved - Left pleural effusion-1 L serosanguineous from left-sided thoracentesis. - Community-acquired pneumonia - Bronchodilator therapy every 4 hours and as needed - Pulmonary consultation Bipolar disorder/Depression - Patient is not currently on any anti-psychiatric medications Hypertension - Normotensive - Not requiring any anti-hypertensives and or vasopressors Diabetes mellitus type 2 - Resume metformin and Continue sliding scale insulin to maintain euglycemia/ moderate regimen CLL - sees Dr. Steele/[facility] - To complete IVIG and dexamethasone 20 mg daily today 06/13/16 per oncology. Patient will not be receiving any inpatient systemic therapy, will follow up with oncology outpatient. -Continue to monitor WBC Bronchopneumonia/community-acquired - Vancomycin, Zosyn/Zithromax (community-acquired pneumonia. De-escalate antibiotics per infectious disease specialist as all cultures negative - Patient is on Diflucan 100 mg by mouth daily and Bactrim 1 tablet every Wednesday /Wednesday for infection. - Blood cultures 2, sputum, influenza, urine Legionella and pneumococcal antigens, chlamydia and mycoplasma antibodies are pending - Appreciate input from ID Prophylaxis - GI - Protonix - DVT - SCD/heparin subcutaneous Transfer to 7 E. Problem Qualifiers (1) Pneumonia: Qualified Code: J18.9 - Pneumonia of both lungs due to infectious organism, unspecified part of lung (2) Respiratory failure: Qualified Code: J96.01 - Acute respiratory failure with hypoxia and hypercapnia (3) Diabetes mellitus: Qualified Code: E11.8 - Type 2 diabetes mellitus with complication, without long-term current use of insulin (4) Hypertension: Qualified Code: I10 - Essential hypertension (5) Osteoarthritis: Qualified Code: M19.90 - Osteoarthritis, unspecified osteoarthritis type, unspecified site Pierce Miller MD Jun 13, 2016 10:42
[2016-06-13] MEDS: ACETAMINOPHEN/HYDROcodone 325 MG/5 MG TAB PO PRN (12:31)
[2016-06-13] MEDS: AZITHROMYCIN INJ 500 MG in SODIUM CHLOR 0.9% 250 ML INJ 250 ML IV SCH (17:46)
[2016-06-13] MEDS: FLUCONAZOLE 100 MG PREMIX BAG 50 ML IV SCH (21:03)
[2016-06-13] MEDS: ENOXAPARIN SODIUM 30 MG/0.3 ML SYRINGE SQ SCH (23:03)
[2016-06-13 23:57] LABS: C PNEUMO IGA <1:16 (()); C PNEUMO IGM <1:10 (())
[2016-06-14] VITALS (11 sets, daily range): BP systolic 119–143; BP diastolic 57–81; PULSE 60–89; RESP 16–22; TEMP 96.3–98.4; O2SAT 89–98
[2016-06-14] MEDS: VANCOMYCIN 1,500 MG/NS 500 ML IV SCH ×4 (00:44→12:15)
[2016-06-14] MEDS: CHLORHEXIDINE GLUCONATE 2 % 1 PACK (2 CLOTHS) TOP SCH (04:00)
--- NOTE | 2016-06-14 05:07 | RADRPT ---
EXAM DATE/TIME: 06/14/2016 03:57 [place] COMPARISON: CHEST SINGLE AP, June 12, 2016, 2:48. INDICATIONS : Shortness of breath, possible pulmonary disease. MEDICAL HISTORY : Leukemia. Diabetes mellitus type II. SURGICAL HISTORY : None. ENCOUNTER: Subsequent ACUITY: 4 - 6 days PAIN SCORE: 0/10 LOCATION: Bilateral chest FINDINGS: There is considerable worsening of bilateral airspace opacities, fairly diffuse but especially left b ase and bilateral perihilar regions. A newly small left pleural effusion is likely as well. I don't s ee a pneumothorax. Heart size stable, within normal limits. Large upper mediastinal mass again seen. CONCLUSION: Bilateral airspace opacities and left pleural effusion developing/worsening. Braxton Campuzano MD on June 14, 2016 at 5:04 Board Certified Radiologist. This report was verified electronically.
[2016-06-14] MEDS: PIPERACIL-TAZO 4.5 GM PREMIX 100 ML IV SCH ×3 (05:35→17:07)
[2016-06-14] MEDS: INSULIN NovoLIN REGULAR SUPPLEMENTAL SCALE SQ SCH ×4 (06:15→22:56)
[2016-06-14 07:47] LABS: AUTOMATED NEUTROPHIL # 9.6 TH/MM3 (1.8-7.7); BASOPHIL # 0.6 TH/MM3 (0-0.2); BASOPHIL % 0.2 % (0.0-2.0); EOSINOPHIL # 0.4 TH/MM3 (0-0.4); EOSINOPHIL % 0.1 % (0.0-4.0); HEMATOCRIT 30.5 % (39.0-51.0); LYMPH % 93.7 % (9.0-44.0); LYMPHOCYTE # 257.9 TH/MM3 (1.0-4.8); MEAN CORPUSCULAR HEMOGLOBIN 31.1 PG (27.0-34.0); MONO % 2.5 % (0.0-8.0); NEUT % 3.5 % (16.0-70.0); PLATELET COUNT 141 TH/MM3 (150-450); RED BLOOD COUNT 3.14 MIL/MM3 (4.50-5.90); RED CELL DISTRIBUTION WIDTH 15.3 % (11.6-17.2); WHITE BLOOD COUNT 275.3 TH/MM3 (4.0-11.0)
[2016-06-14 07:57] LABS: HEMO FLAGS AUTO DIFF
[2016-06-14] MEDS: RESP: ALBUTEROL 2.5 MG/IPRATROPIUM 0.5 MG NEB (SCH) INH ×3 (08:00→20:00)
[2016-06-14 08:14] LABS: ALT (GPT) 12 U/L (12-78); ANION GAP 10 MEQ/L (5-15); AST (GOT) 16 U/L (15-37); BLOOD UREA NITROGEN 16 MG/DL (7-18); CHLORIDE 110 MEQ/L (98-107); GLOMERULAR FILTRATION RATE 71 ML/MIN (>89); POTASSIUM 3.4 MEQ/L (3.5-5.1); SODIUM (NA) 142 MEQ/L (136-145)
[2016-06-14 08:16] LABS: ALKALINE PHOSPHATASE 91 U/L (45-117); TOTAL BILIRUBIN ADULT 0.6 MG/DL (0.2-1.0)
[2016-06-14] MEDS: DOCUSATE SODIUM 100 MG CAP PO SCH ×2 (09:00→22:56)
--- NOTE | 2016-06-14 09:10 | HHI.PR ---
Subjective Remarks Follow-up respiratory failure/CLL 06/12/16-patient seen and examined; states she was up and did ambulate twice today. Denies any significant shortness of breath. Currently receiving IVIG as well as dexamethasone per oncology 06/13/16-patient seen and examined; stable and no complaint. Afebrile. Denies any chest pain or shortness of breath. 06/14/16-patient seen and examined. Afebrile, no complaint and states he is ready for discharge Objective Vitals Vital Signs Date Time Temp Pulse Resp B/P Pulse Ox O2 Delivery O2 Flow Rate FiO2 06/14/16 08:01 98 Nasal Cannula 2.00 06/14/16 08:00 97.0 76 18 122/72 92 06/14/16 05:17 97.0 60 18 143/75 94 06/14/16 00:38 96.4 80 20 119/61 93 06/13/16 21:30 95 Nasal Cannula 2.00 06/13/16 16:50 97.2 94 19 135/81 97 06/13/16 16:41 93 Nasal Cannula 2.00 06/13/16 12:00 97.9 86 23 144/78 93 06/13/16 12:00 86 06/13/16 10:00 100 I/O 06/13/16 06/13/16 06/13/16 06/14/16 06/14/16 06/14/16 07:00 15:00 23:00 07:00 15:00 23:00 Intake Total 2167 ml 1528 ml Output Total 830 ml 1200 ml Balance 1337 ml 328 ml Intake Oral 480 ml 480 ml IV Total 1687 ml 1048 ml Output Urine Total 830 ml 1200 ml # Voids 2 # Bowel Movements 1 1 1 Result Diagram: 06/14/16 0710 06/14/16 0710 Objective Remarks GENERAL: NAD and sitting in a chair SKIN: Warm and dry. HEAD: Normocephalic. EYES: No scleral icterus. No injection or drainage. NECK: Supple, trachea midline. No JVD or lymphadenopathy. CARDIOVASCULAR: Regular rate and rhythm without murmurs, gallops, or rubs. RESPIRATORY: Breath sounds equal bilaterally. No accessory muscle use. GASTROINTESTINAL: Abdomen soft, non-tender, nondistended. MUSCULOSKELETAL: No cyanosis, or edema. BACK: Nontender without obvious deformity. No CVA tenderness. A/P Problem List: (1) CLL (chronic lymphocytic leukemia) ICD Code: C91.10 Status: Chronic (2) History of bipolar disorder ICD Code: Z86.59 Status: Acute (3) History of post traumatic stress disorder ICD Code: Z86.59 Status: Acute (4) Hyperkalemia ICD Code: E87.5 Status: Resolved (5) Pneumonia ICD Code: J18.9 Status: Acute (6) Respiratory failure ICD Code: J96.90 Status: Acute (7) Diabetes mellitus ICD Code: E11.9 Status: Acute (8) Posttraumatic stress disorder ICD Code: F43.10 Status: Acute (9) Agammaglobulinemia ICD Code: D80.1 Status: Acute (10) Hypertension ICD Code: I10 Status: Acute (11) Osteoarthritis ICD Code: M19.90 Status: Acute (12) Severe sepsis ICD Code: A41.9 Status: Acute Assessment and Plan 66-year-old male with Acute hypoxemic respiratory failure-resolved - Left pleural effusion-1 L serosanguineous from left-sided thoracentesis. Cytology report pending - Community-acquired pneumonia - Bronchodilator therapy every 4 hours and as needed - Pulmonary consultation Bipolar disorder/Depression - Patient is not currently on any anti-psychiatric medications Hypertension - Normotensive - Not requiring any anti-hypertensives and or vasopressors Diabetes mellitus type 2 - Resume metformin and Continue sliding scale insulin to maintain euglycemia/ moderate regimen CLL - sees Dr. Steele/[facility] - s/p IVIG and dexamethasone 20 mg daily 06/13/16 per oncology. Patient will not be receiving any inpatient systemic therapy, will follow up with oncology outpatient. -Continue to monitor WBC Bronchopneumonia/community-acquired - Vancomycin, Zosyn/Zithromax (community-acquired pneumonia. De-escalate antibiotics per infectious disease specialist as all cultures negative - Patient is on Diflucan 100 mg by mouth daily and Bactrim 1 tablet every Wednesday /Wednesday for infection. - Blood cultures 2, sputum, influenza, urine Legionella and pneumococcal antigens, chlamydia and mycoplasma antibodies are NTD - Appreciate input from ID Prophylaxis - GI - Protonix - DVT - SCD/heparin subcutaneous Problem Qualifiers (1) Pneumonia: Qualified Code: J18.9 - Pneumonia of both lungs due to infectious organism, unspecified part of lung (2) Respiratory failure: Qualified Code: J96.01 - Acute respiratory failure with hypoxia and hypercapnia (3) Diabetes mellitus: Qualified Code: E11.8 - Type 2 diabetes mellitus with complication, without long-term current use of insulin (4) Hypertension: Qualified Code: I10 - Essential hypertension (5) Osteoarthritis: Qualified Code: M19.90 - Osteoarthritis, unspecified osteoarthritis type, unspecified site Pierce Miller MD Jun 14, 2016 09:10
--- NOTE | 2016-06-14 09:12 | PD.ONC.PN ---
Subjective Subjective Remarks Pt sitting up in chair at bedside. He tells me he is about to get up and go for a walk test with respiratory therapy. He has no complaints. He is anxious to be discharged. Objective Data Date Time Temp Pulse Resp B/P Pulse Ox O2 Delivery O2 Flow Rate FiO2 06/14/16 08:01 98 Nasal Cannula 2.00 06/14/16 08:00 97.0 76 18 122/72 92 06/14/16 05:17 97.0 60 18 143/75 94 06/14/16 00:38 96.4 80 20 119/61 93 06/13/16 21:30 95 Nasal Cannula 2.00 06/13/16 16:50 97.2 94 19 135/81 97 06/13/16 16:41 93 Nasal Cannula 2.00 06/13/16 12:00 97.9 86 23 144/78 93 06/13/16 12:00 86 06/13/16 10:00 100 Result Diagram: 06/14/16 0710 06/14/16 0710 Laboratory Results Laboratory Tests Test 06/14/16 07:10 White Blood Count 275.3 TH/MM3 Red Blood Count 3.14 MIL/MM3 Hemoglobin 9.8 GM/DL Hematocrit 30.5 % Mean Corpuscular Volume 97.0 FL Mean Corpuscular Hemoglobin 31.1 PG Mean Corpuscular Hemoglobin 32.0 % Concent Red Cell Distribution Width 15.3 % Platelet Count 141 TH/MM3 Mean Platelet Volume 7.6 FL Neutrophils (%) (Auto) 3.5 % Lymphocytes (%) (Auto) 93.7 % Monocytes (%) (Auto) 2.5 % Eosinophils (%) (Auto) 0.1 % Basophils (%) (Auto) 0.2 % Neutrophils # (Auto) 9.6 TH/MM3 Lymphocytes # (Auto) 257.9 TH/MM3 Monocytes # (Auto) 6.8 TH/MM3 Eosinophils # (Auto) 0.4 TH/MM3 Basophils # (Auto) 0.6 TH/MM3 CBC Comment AUTO DIFF Sodium Level 142 MEQ/L Potassium Level 3.4 MEQ/L Chloride Level 110 MEQ/L Carbon Dioxide Level 22.0 MEQ/L Anion Gap 10 MEQ/L Blood Urea Nitrogen 16 MG/DL Creatinine 1.04 MG/DL Estimat Glomerular Filtration 71 ML/MIN Rate Random Glucose 129 MG/DL Calcium Level 8.6 MG/DL Total Bilirubin 0.6 MG/DL Aspartate Amino Transf 16 U/L (AST/SGOT) Alanine Aminotransferase 12 U/L (ALT/SGPT) Alkaline Phosphatase 91 U/L Total Protein 6.8 GM/DL Albumin 2.4 GM/DL Imaging Studies Last 24 hours Impressions Chest X-Ray 06/14/16 0600 Signed Impressions: Service Date/Time: Tuesday, June 14, 2016 03:57 - CONCLUSION: Bilateral airspace opacities and left pleural effusion developing/worsening. Braxton Campuzano MD Administered Medications Medications (Trade) Dose Ordered Sig/Tanesha Route PRN Reason Start Time Stop Time Status Last Admin Dose Admin IV Flush (NS Flush) 2 ml BID IV FLUSH 06/11/16 09:00 06/13/16 21:02 Acetaminophen/ Hydrocodone Bitart ([place] 5-325 Mg) 1 tab Q4H PRN PO PAIN SCALE 1 TO 5 06/10/16 22:15 06/13/16 12:31 Morphine Sulfate (Morphine Inj) 2 mg Q2H PRN IV PAIN SCALE 6 TO 10 06/10/16 22:15 06/13/16 05:04 Lorazepam (Ativan Inj) 1 mg Q1H PRN IV Agitation/Sedation 06/10/16 22:15 06/13/16 23:03 Artificial Tears (Tears Naturale Opth Soln) 1 drop TID EACH EYE 06/11/16 09:00 06/13/16 17:03 Docusate Sodium (Colace) 100 mg BID PO 06/11/16 09:00 06/11/16 20:43 Enoxaparin Sodium (Lovenox Inj) 30 mg Q24H SQ 06/10/16 23:00 06/13/16 23:03 Chlorhexidine Gluconate 3 pack 3 pack Taper DAILY@04 TOP 06/11/16 04:00 06/07/17 03:59 06/12/16 03:06 Piperacillin Sod/ Tazobactam Sod 100 ml @ 200 mls/hr Q6H IV 06/10/16 23:00 06/14/16 05:35 Azithromycin 500 mg/Sodium Chloride 250 ml @ 250 mls/hr Q24H IV 06/11/16 18:00 06/13/16 17:46 Fluconazole/ Sodium Chloride (Diflucan 100 Mg Premix Bag) 50 ml @ 50 mls/hr Q24H IV 06/10/16 23:00 06/13/16 21:03 Pantoprazole Sodium 40 mg 40 mg DAILY PO 06/13/16 09:00 06/13/16 07:49 Vancomycin HCl/ Sodium Chloride (Vancomycin Inj/ NS 500 ml Inj) 515 ml @ 257.5 mls/ hr Q12H IV 06/13/16 00:00 06/14/16 00:44 Objective Remarks GENERAL: Older male sitting up in chair at bedside in no distress. SKIN: Warm and dry. Multiple tattoos HEAD: Normocephalic. EYES: No injection or drainage. NECK: Supple, trachea midline. CARDIOVASCULAR: S1/S2. No murmur appreciated. RESPIRATORY: Lungs clear. Very mild crackles heard to bilateral bases. GASTROINTESTINAL: Abdomen soft, non-tender, nondistended. EXTREMITIES: No edema. NEUROLOGICAL: No obvious focal deficit. Awake, alert, and oriented x3. Assessment/Plan Plan 1. Chronic lymphocytic leukemia: His leukocytosis is increased today. He will require treatment as some point but he should followup with his oncologist (Dr. Ghosh) at [facility], as we are unsure of what treatments he has had already. Clinically he is improved from yesterday. He received pulse dose therapy with dexamethasone 20mg x 3 doses here as an inpatient. 2. Hypogammaglobulinemia: He received 2 doses of IVIG. 3. Pleural Effusion: Worsening on the L. Cytology pending on pleural fluid. 4. Continue IV Abx Attending Statement The exam, history, and the medical decision-making described in the above note were completed with the assistance of the mid-level provider. I reviewed and agree with the findings presented. I attest that I had a [id number] encounter with the patient on the same day, and personally performed and documented my assessment and findings in the medical record. he is feeling better and hungry. pleural fluid shows no growth at 72 hours. He should be able to go home in next day and it is imperative he follow up with his oncologist as he needs tx given volume of disease. There are multiple effective treatments. Above discussed with him. Emily Matos Jun 14, 2016 09:12 Abimael Gutierrez MD Jun 14, 2016 16:53 3. Pleural Effusion: Worsening on the L. Cytology pending on pleural fluid. 4. Continue IV Abx Emily Matos Jun 14, 2016 09:12
[2016-06-14] MEDS ORDERED: POTASSIUM CHLORIDE 20 MEQ CONTROLLED RELEASE TAB PO ONE (09:15)
[2016-06-14 09:45] LABS: NEUTROPHIL # MANUAL DIFF 8.3 TH/MM3 (1.8-7.7); POLYS (SEG NEUTROPHILS) 3 % (16-70); WBC DIFF SAMPLE 100
[2016-06-14 09:46] LABS: SMUDGE CELLS PRESENT PRESENT
[2016-06-14 09:47] LABS: PLATELET ESTIMATE SMEAR LOW (NORMAL); PLATELET MORPHOLOGY NORMAL (NORMAL); SCAN/DIFF FINAL DIFF MANUAL
[2016-06-14] MEDS: PANTOPRAZOLE SOD 40 MG DELAYED RELEASE TAB PO SCH (09:53)
[2016-06-14] MEDS: ARTIFICIAL TEARS OPTH SOLN 15 ML BTL EACH EYE SCH ×3 (09:54→17:10)
[2016-06-14] MEDS: SODIUM CHLORIDE 0.9% FLUSH 5 ML FLUSH IV FLUSH SCH ×2 (09:54→22:57)
[2016-06-14] MEDS ORDERED: PHARMACY ORDERED LAB XX ONE (11:45)
[2016-06-14] MEDS: ACETAMINOPHEN/HYDROcodone 325 MG/5 MG TAB PO PRN ×2 (13:08→17:10)
[2016-06-14] MEDS: AZITHROMYCIN INJ 500 MG in SODIUM CHLOR 0.9% 250 ML INJ 250 ML IV SCH (18:02)
[2016-06-14] MEDS: ENOXAPARIN SODIUM 30 MG/0.3 ML SYRINGE SQ SCH (22:57)
[2016-06-14] MEDS: FLUCONAZOLE 100 MG PREMIX BAG 50 ML IV SCH (22:57)
[2016-06-15] MEDS: PIPERACIL-TAZO 4.5 GM PREMIX 100 ML IV SCH ×3 (00:04→10:41)
[2016-06-15] MEDS: VANCOMYCIN 1,500 MG/NS 500 ML IV SCH ×2 (01:10)
[2016-06-15 03:30] VITALS: BP 138/86; PULSE 84; RESP 16; TEMP 97.2; O2SAT 92
[2016-06-15] MEDS: CHLORHEXIDINE GLUCONATE 2 % 1 PACK (2 CLOTHS) TOP SCH (03:52)
[2016-06-15] MEDS: INSULIN NovoLIN REGULAR SUPPLEMENTAL SCALE SQ SCH ×2 (06:35→11:36)
[2016-06-15 06:46] LABS: HEMATOCRIT 31.7 % (39.0-51.0); MEAN CELL VOLUME 96.5 FL (80.0-100.0); MEAN CORPUSCULAR HEMOGLOBIN 31.4 PG (27.0-34.0); MEAN CORPUSCULAR HGB CONC 32.5 % (32.0-36.0); PLATELET COUNT 151 TH/MM3 (150-450); RED BLOOD COUNT 3.29 MIL/MM3 (4.50-5.90); RED CELL DISTRIBUTION WIDTH 14.7 % (11.6-17.2); WHITE BLOOD COUNT 302.1 TH/MM3 (4.0-11.0)
[2016-06-15 07:01] LABS: HEMO FLAGS AUTO DIFF
[2016-06-15 07:22] LABS: ANION GAP 9 MEQ/L (5-15); AST (GOT) 16 U/L (15-37); BICARBONATE 22.1 MEQ/L (21.0-32.0); BLOOD UREA NITROGEN 16 MG/DL (7-18); CHLORIDE 108 MEQ/L (98-107); GLOMERULAR FILTRATION RATE 73 ML/MIN (>89); POTASSIUM 3.8 MEQ/L (3.5-5.1); SODIUM (NA) 139 MEQ/L (136-145)
[2016-06-15 07:24] LABS: ALKALINE PHOSPHATASE 92 U/L (45-117); ALT (GPT) 14 U/L (12-78); TOTAL BILIRUBIN ADULT 0.6 MG/DL (0.2-1.0)
[2016-06-15 08:00] VITALS: BP 138/81; PULSE 86; RESP 20; TEMP 96.7; O2SAT 93
[2016-06-15] MEDS: RESP: ALBUTEROL 2.5 MG/IPRATROPIUM 0.5 MG NEB (SCH) INH (08:00)
[2016-06-15 08:05] VITALS: PULSE 81
--- NOTE | 2016-06-15 08:13 | PD.ONC.PN ---
Subjective Subjective Remarks Mr. Liu reports feeling well, he is eager to go home today. He tells me his breathing is close to normal and that he has been walking without difficulty and the hallways. His appetite is also good, he denies fevers or chills, there were no acute events over the weekend. Objective Data Date Time Temp Pulse Resp B/P Pulse Ox O2 Delivery O2 Flow Rate FiO2 06/15/16 03:30 97.2 84 16 138/86 92 06/14/16 23:40 97.4 87 19 130/79 89 06/14/16 22:00 84 06/14/16 22:00 94 Room Air 06/14/16 20:00 95 21 06/14/16 19:45 96.3 87 22 127/57 94 06/14/16 16:00 97.8 89 18 131/81 94 06/14/16 12:00 98.4 74 16 128/79 93 06/14/16 09:55 94 Room Air 21 06/14/16 08:38 82 Result Diagram: 06/15/16 0547 06/15/16 0547 Laboratory Results Laboratory Tests Test 06/15/16 05:47 White Blood Count 302.1 TH/MM3 Red Blood Count 3.29 MIL/MM3 Hemoglobin 10.3 GM/DL Hematocrit 31.7 % Mean Corpuscular Volume 96.5 FL Mean Corpuscular Hemoglobin 31.4 PG Mean Corpuscular Hemoglobin 32.5 % Concent Red Cell Distribution Width 14.7 % Platelet Count 151 TH/MM3 Mean Platelet Volume 7.9 FL Neutrophils (%) (Auto) % Lymphocytes (%) (Auto) % Monocytes (%) (Auto) % Eosinophils (%) (Auto) % Basophils (%) (Auto) % Neutrophils # (Auto) TH/MM3 Lymphocytes # (Auto) TH/MM3 Monocytes # (Auto) TH/MM3 Eosinophils # (Auto) TH/MM3 Basophils # (Auto) TH/MM3 CBC Comment AUTO DIFF Sodium Level 139 MEQ/L Potassium Level 3.8 MEQ/L Chloride Level 108 MEQ/L Carbon Dioxide Level 22.1 MEQ/L Anion Gap 9 MEQ/L Blood Urea Nitrogen 16 MG/DL Creatinine 1.02 MG/DL Estimat Glomerular Filtration 73 ML/MIN Rate Random Glucose 116 MG/DL Calcium Level 8.5 MG/DL Total Bilirubin 0.6 MG/DL Aspartate Amino Transf 16 U/L (AST/SGOT) Alanine Aminotransferase 14 U/L (ALT/SGPT) Alkaline Phosphatase 92 U/L Total Protein 6.7 GM/DL Albumin 2.2 GM/DL Administered Medications Medications (Trade) Dose Ordered Sig/Tanesha Route PRN Reason Start Time Stop Time Status Last Admin Dose Admin IV Flush (NS Flush) 2 ml BID IV FLUSH 06/11/16 09:00 06/14/16 22:57 Acetaminophen/ Hydrocodone Bitart ([place] 5-325 Mg) 1 tab Q4H PRN PO PAIN SCALE 1 TO 5 06/10/16 22:15 06/14/16 17:10 Morphine Sulfate (Morphine Inj) 2 mg Q2H PRN IV PAIN SCALE 6 TO 10 06/10/16 22:15 06/13/16 05:04 Lorazepam (Ativan Inj) 1 mg Q1H PRN IV Agitation/Sedation 06/10/16 22:15 06/13/16 23:03 Artificial Tears (Tears Naturale Opth Soln) 1 drop TID EACH EYE 06/11/16 09:00 06/14/16 17:10 Docusate Sodium (Colace) 100 mg BID PO 06/11/16 09:00 06/11/16 20:43 Enoxaparin Sodium (Lovenox Inj) 30 mg Q24H SQ 06/10/16 23:00 06/14/16 22:57 Chlorhexidine Gluconate 3 pack 3 pack Taper DAILY@04 TOP 06/11/16 04:00 06/07/17 03:59 06/12/16 03:06 Piperacillin Sod/ Tazobactam Sod 100 ml @ 200 mls/hr Q6H IV 06/10/16 23:00 06/15/16 05:08 Azithromycin 500 mg/Sodium Chloride 250 ml @ 250 mls/hr Q24H IV 06/11/16 18:00 06/14/16 18:02 Fluconazole/ Sodium Chloride (Diflucan 100 Mg Premix Bag) 50 ml @ 50 mls/hr Q24H IV 06/10/16 23:00 06/14/16 22:57 Pantoprazole Sodium 40 mg 40 mg DAILY PO 06/13/16 09:00 06/14/16 09:53 Vancomycin HCl/ Sodium Chloride (Vancomycin Inj/ NS 500 ml Inj) 515 ml @ 257.5 mls/ hr Q12H IV 06/13/16 00:00 06/15/16 01:10 Objective Remarks GENERAL: Mr. Liu is a middle-aged male, sitting up in bed, breathing very comfortably, having dinner. On nasal cannula. HEAD, EYES, EARS, NOSE, THROAT: Head is atraumatic and normocephalic. Conjunctivae are mildly pale. Sclerae anicteric, EOMI, PERRLA, oral exam with no pharyngeal erythema. NECK: Bilateral cervical lymphadenopathy. RESPIRATORY EXAM: Regular rate and rhythm, good air movement bilaterally, improved by basilar breath sounds, no wheezes or rhonchi. AXILLARY EXAMINATION: Bulky lymphadenopathy. CARDIOVASCULAR: Regular rhythm. Regular rate, S1-S2. No obvious murmurs, rubs or gallops. ABDOMINAL EXAM: Protuberant, soft, nontender and nondistended. No palpable organ enlargement. LOWER EXTREMITIES: No pretibial edema or calf tenderness. HORSESHOER: No focal sensory or motor deficits. Assessment/Plan Assessment Long-standing history of chronic lymphocytic leukemia, he reports having been on systemic treatment intermittently through the [facility] in [place]. He tells me his most recent treatment was close to 6 months ago and he had been off treatment ever since. He presented to the hospital with febrile illness and what appears to be parapneumonic effusions. He was also noted to have hypogammaglobulinemia; likely secondary to his history of CLL. The patient was given IVIG for management of the hypogammaglobulinemia. he has high volume CLL burden, he will require treatment in the near future. I will defer to his tire adjuster at the [facility] for therapeutic interventions. Plan 1. Chronic lymphocytic leukemia: This is a chronic issue, I did attempt to treat him with dexamethasone in the hospital but this did not result in a significant response. Even though his lymphocyte count is increasing, this is not a reason to keep him in the hospital. Treatment can be effectively delivered as an outpatient and therefore I would recommend he be evaluated by his [place] tire adjuster within the next one week to discuss initiation of systemic therapy. 2. Hypogammaglobulinemia: He received 2 doses of IVIG. 3. Pleural Effusion: Clinically improved, now completely weaned off oxygen and is doing well. Disposition: May discharged home with close outpatient follow-up with the [place] tire adjuster at the [facility] in [facility]. Se Naqvi MD Jun 15, 2016 08:13
[2016-06-15 08:30] LABS: POLYS (SEG NEUTROPHILS) 1 % (16-70); WBC DIFF SAMPLE 200
[2016-06-15 08:31] LABS: SMUDGE CELLS PRESENT PRESENT
[2016-06-15 08:32] LABS: PLATELET ESTIMATE SMEAR NORMAL (NORMAL); PLATELET MORPHOLOGY NORMAL (NORMAL); SCAN/DIFF FINAL DIFF MANUAL
[2016-06-15 08:53] VITALS: O2SAT 94
[2016-06-15] MEDS: DOCUSATE SODIUM 100 MG CAP PO SCH (09:00)
--- NOTE | 2016-06-15 09:58 | HHI.PR ---
Subjective Remarks Follow-up respiratory failure/CLL 06/12/16-patient seen and examined; states she was up and did ambulate twice today. Denies any significant shortness of breath. Currently receiving IVIG as well as dexamethasone per oncology 06/13/16-patient seen and examined; stable and no complaint. Afebrile. Denies any chest pain or shortness of breath. 06/14/16-patient seen and examined. Afebrile, no complaint and states he is ready for discharge 06/15/16-patient seen and examined; states he is felling much better and he is ready for discharge home. Objective Vitals Vital Signs Date Time Temp Pulse Resp B/P Pulse Ox O2 Delivery O2 Flow Rate FiO2 06/15/16 08:53 94 21 06/15/16 03:30 97.2 84 16 138/86 92 06/14/16 23:40 97.4 87 19 130/79 89 06/14/16 22:00 84 06/14/16 22:00 94 Room Air 06/14/16 20:00 95 21 06/14/16 19:45 96.3 87 22 127/57 94 06/14/16 16:00 97.8 89 18 131/81 94 06/14/16 12:00 98.4 74 16 128/79 93 I/O 06/14/16 06/14/16 06/14/16 06/15/16 06/15/16 06/15/16 07:00 15:00 23:00 07:00 15:00 23:00 Intake Total 1277 ml 100 ml 1190 ml Balance 1277 ml 100 ml 1190 ml Intake Oral 900 ml 480 ml IV Total 377 ml 100 ml 710 ml # Voids 8 3 # Bowel Movements 1 Result Diagram: 06/15/16 0547 06/15/16 0547 Imaging Last Impressions Chest X-Ray 06/14/16 0600 Signed Impressions: Service Date/Time: Tuesday, June 14, 2016 03:57 - CONCLUSION: Bilateral airspace opacities and left pleural effusion developing/worsening. Braxton Campuzano MD CT Angiography 06/10/16 4647 Signed Impressions: Service Date/Time: Friday, June 10, 2016 20:24 - CONCLUSION: 1. Negative for pulmonary embolus. 2. Extensive mediastinal and axillary adenopathy in patient with reported history of leukemia. 3. Moderate left effusion with compressive atelectasis left lower lung. Extensive bilateral airspace disease in the lungs. Findings nonspecific but differential diagnosis includes infection, edema and hypersensitivity pneumonitis. Manjeet Alvarado MD Objective Remarks GENERAL: NAD and sitting in a chair SKIN: Warm and dry. HEAD: Normocephalic. EYES: No scleral icterus. No injection or drainage. NECK: Supple, trachea midline. No JVD or lymphadenopathy. CARDIOVASCULAR: Regular rate and rhythm without murmurs, gallops, or rubs. RESPIRATORY: Breath sounds equal bilaterally. No accessory muscle use. GASTROINTESTINAL: Abdomen soft, non-tender, nondistended. MUSCULOSKELETAL: No cyanosis, or edema. BACK: Nontender without obvious deformity. No CVA tenderness. Procedures None A/P Problem List: (1) CLL (chronic lymphocytic leukemia) ICD Code: C91.10 Status: Chronic (2) History of bipolar disorder ICD Code: Z86.59 Status: Acute (3) History of post traumatic stress disorder ICD Code: Z86.59 Status: Acute (4) Hyperkalemia ICD Code: E87.5 Status: Resolved (5) Pneumonia ICD Code: J18.9 Status: Acute (6) Respiratory failure ICD Code: J96.90 Status: Acute (7) Diabetes mellitus ICD Code: E11.9 Status: Acute (8) Posttraumatic stress disorder ICD Code: F43.10 Status: Acute (9) Agammaglobulinemia ICD Code: D80.1 Status: Acute (10) Hypertension ICD Code: I10 Status: Acute (11) Osteoarthritis ICD Code: M19.90 Status: Acute (12) Severe sepsis ICD Code: A41.9 Status: Acute Assessment and Plan 66-year-old male with Acute hypoxemic respiratory failure-resolved - Left pleural effusion-1 L serosanguineous from left-sided thoracentesis. Cytology report pending - Community-acquired pneumonia - Bronchodilator therapy every 4 hours and as needed - Pulmonary consultation appreciated Bipolar disorder/Depression-stable - Patient is not currently on any anti-psychiatric medications Hypertension - Normotensive - Not requiring any anti-hypertensives and or vasopressors Diabetes mellitus type 2 - on metformin and Continue sliding scale insulin to maintain euglycemia/ moderate regimen CLL - sees Dr. Steele/[facility] - s/p IVIG x 2 doses and dexamethasone 20 mg daily 06/13/16 per oncology. Patient will not be receiving any inpatient systemic therapy, will follow up with oncology outpatient. -Continue to monitor WBC Bronchopneumonia/community-acquired - Vancomycin, Zosyn/Zithromax (community-acquired pneumonia. De-escalate antibiotics per infectious disease specialist as all cultures negative - Patient is on Diflucan 100 mg by mouth daily and Bactrim 1 tablet every Wednesday /Wednesday for infection. - Blood cultures 2, sputum, influenza, urine Legionella and pneumococcal antigens, chlamydia and mycoplasma antibodies are NTD - Appreciate input from ID Prophylaxis - GI - Protonix - DVT - SCD/heparin subcutaneous Problem Qualifiers (1) Pneumonia: Qualified Code: J18.9 - Pneumonia of both lungs due to infectious organism, unspecified part of lung (2) Respiratory failure: Qualified Code: J96.01 - Acute respiratory failure with hypoxia and hypercapnia (3) Diabetes mellitus: Qualified Code: E11.8 - Type 2 diabetes mellitus with complication, without long-term current use of insulin (4) Hypertension: Qualified Code: I10 - Essential hypertension (5) Osteoarthritis: Qualified Code: M19.90 - Osteoarthritis, unspecified osteoarthritis type, unspecified site Pierce Miller MD Jun 15, 2016 09:58
--- NOTE | 2016-06-15 10:04 | HHI.DS ---
Discharge Summary Admission Date Jun 10, 2016 at 21:48 Discharge Date: Jun 15, 2016 Admitting Diagnosis Hypoxia, HyperK, L Pl Eff, PNA, Leukemia (1) CLL (chronic lymphocytic leukemia) ICD Code: C91.10 Diagnosis: Principal (2) History of bipolar disorder ICD Code: Z86.59 Diagnosis: Principal (3) History of post traumatic stress disorder ICD Code: Z86.59 Diagnosis: Principal (4) Hyperkalemia ICD Code: E87.5 Diagnosis: Principal (5) Pneumonia ICD Code: J18.9 Diagnosis: Principal (6) Respiratory failure ICD Code: J96.90 Diagnosis: Principal (7) Diabetes mellitus ICD Code: E11.9 Diagnosis: Principal (8) Posttraumatic stress disorder ICD Code: F43.10 Diagnosis: Principal (9) Agammaglobulinemia ICD Code: D80.1 Diagnosis: Principal (10) Hypertension ICD Code: I10 Diagnosis: Principal (11) Osteoarthritis ICD Code: M19.90 Diagnosis: Principal (12) Severe sepsis ICD Code: A41.9 Diagnosis: Principal Procedures None Brief History - From Admission 66-year-old male. Date of admission 06/10/2016. Past medical history includes CLL treated by Dr. Steele at the [facility], diabetes type 2, squamous cell carcinoma of the scalp, rosacea, EtOH, bipolar, depression, PTSD, actinic keratosis, chronic low back pain, dyslipidemia, osteoarthritis. Last chemotherapy 11/15. He presents to [place] help with the 5 history increasing shortness of breath, worse with exertion. Associated with nonproductive cough. Reports that he is not a smoker, reports no recent travels or chest. Denies history of PE or DVT. Denies any sick contacts. Denies fevers or chills. Chest x-ray revealed pneumonia with possible pleural effusion left side. CT revealed no pulmonary embolism. Moderate left pleural effusion. Bronchial pneumonia type findings with inflammatory changes throughout. Patient was placed on nonrebreather mask is currently comfortable and will speak complete sentences. Patient also had a potassium of 7.3.. Received Kayexalate D50 insulin and calcium is currently corrected to 4.4. He is currently status post thoracentesis 1 L of serosanguineous fluid left side. Chest x-ray is currently pending. CBC/BMP: 06/15/16 0547 06/15/16 0547 Significant Findings Laboratory Tests Test 06/12/16 06/13/16 06/14/16 06/15/16 11:50 05:01 07:10 05:47 Vancomycin Level Trough 12.5 MCG/ML 30.8 MCG/ML (5.0-10.0) (5.0-10.0) White Blood Count 229.7 TH/MM3 275.3 TH/MM3 302.1 TH/MM3 (4.0-11.0) (4.0-11.0) (4.0-11.0) Red Blood Count 2.95 MIL/MM3 3.14 MIL/MM3 3.29 MIL/MM3 (4.50-5.90) (4.50-5.90) (4.50-5.90) Hemoglobin 9.2 GM/DL 9.8 GM/DL 10.3 GM/DL (13.0-17.0) (13.0-17.0) (13.0-17.0) Hematocrit 31.5 % 30.5 % 31.7 % (39.0-51.0) (39.0-51.0) (39.0-51.0) Mean Corpuscular Volume 106.9 FL (80.0-100.0) Mean Corpuscular Hemoglobin 29.2 % Concent (32.0-36.0) Platelet Count 139 TH/MM3 141 TH/MM3 (150-450) (150-450) Neutrophils % (Manual) 3 % (16-70) 3 % (16-70) 1 % (16-70) Lymphocytes % 97 % (9-44) 96 % (9-44) 99 % (9-44) Platelet Estimate LOW (NORMAL) LOW (NORMAL) Chloride Level 111 MEQ/L 110 MEQ/L 108 MEQ/L (98-107) (98-107) (98-107) Carbon Dioxide Level 17.5 MEQ/L (21.0-32.0) Estimat Glomerular Filtration 82 ML/MIN (>89) 71 ML/MIN (>89) 73 ML/MIN (>89) Rate Random Glucose 121 MG/DL 129 MG/DL 116 MG/DL (74-106) (74-106) (74-106) Calcium Level 8.3 MG/DL (8.5-10.1) Neutrophils (%) (Auto) 3.5 % (16.0-70.0) Lymphocytes (%) (Auto) 93.7 % (9.0-44.0) Neutrophils # (Auto) 9.6 TH/MM3 (1.8-7.7) Lymphocytes # (Auto) 257.9 TH/MM3 (1.0-4.8) Monocytes # (Auto) 6.8 TH/MM3 (0-0.9) Basophils # (Auto) 0.6 TH/MM3 (0-0.2) Neutrophils # (Manual) 8.3 TH/MM3 (1.8-7.7) Potassium Level 3.4 MEQ/L (3.5-5.1) Albumin 2.4 GM/DL 2.2 GM/DL (3.4-5.0) (3.4-5.0) PE at Discharge GENERAL: NAD and sitting in a chair SKIN: Warm and dry. HEAD: Normocephalic. EYES: No scleral icterus. No injection or drainage. NECK: Supple, trachea midline. No JVD or lymphadenopathy. CARDIOVASCULAR: Regular rate and rhythm without murmurs, gallops, or rubs. RESPIRATORY: Breath sounds equal bilaterally. No accessory muscle use. GASTROINTESTINAL: Abdomen soft, non-tender, nondistended. MUSCULOSKELETAL: No cyanosis, or edema. BACK: Nontender without obvious deformity. No CVA tenderness. Hospital Course Patient admitted initially under the care of critical care medicine secondary to acute hypoxemic respiratory failure, was found to have left pleural effusion for which he underwent left-sided thoracentesis and was started on antibiotics for community acquired pneumonia with consultation to pulmonary medicine as well as infectious disease specialist. Secondary to a history of CLL hematology was consulted patient received 2 dose of IVIG along with dexamethasone 20 mg daily 2 days however no inpatient systemic therapy was initiated. He was placed on sliding scale insulin and subsequently home regiment of metformin was resumed. DVT and GI prophylaxis were provided. Vital signs prior to discharge remained stable and patient condition improved. Pt Condition on Discharge: Stable Discharge Disposition: Discharge Home Discharge Time: <= 30 minutes Discharge Instructions DIET: Follow Instructions for: Heart Healthy Diet Activities you can perform: Regular-No Restrictions Follow up Referrals: Oncology PCP Follow-up - 1 Week New Medications: Levofloxacin (Levaquin) 750 Mg Tab 750 MG PO DAILY Infection #7 Ref 0 TAB Continued Medications: Metformin ER (Metformin ER) 1,000 Mg Ariane 1000 MG PO DAILY With evening meal Blood Sugar Management #30 Ref 0 TAB Tramadol (Tramadol) 50 Mg Tab 50 MG PO Q4H PRN PAIN Ref 0 TAB Pierce Miller MD Jun 15, 2016 10:04
[2016-06-15] MEDS: ARTIFICIAL TEARS OPTH SOLN 15 ML BTL EACH EYE SCH (10:30)
[2016-06-15] MEDS: SODIUM CHLORIDE 0.9% FLUSH 5 ML FLUSH IV FLUSH SCH ×2 (10:31→10:42)
[2016-06-15] MEDS: PANTOPRAZOLE SOD 40 MG DELAYED RELEASE TAB PO SCH (10:32)
[2016-06-15] MEDS ORDERED: PHARMACY ORDERED LAB XX ONE (11:45)
--- NOTE | 2016-06-15 11:59 | HHI.IDPN ---
Subjective Subjective Remarks doing much better On RA ambulates in hallway wo problems wants to leave Antibiotics vanco zosyn azithro fluc Allergies: Coded Allergies: Olanzapine (Verified Allergy, Unknown, 06/10/16) Per patient "develops oozing blister-like rashes". Citalopram (Verified Adverse Reaction, Intermediate, RASH, 06/10/16) Mirtazapine (Verified Adverse Reaction, Intermediate, RASH, 06/10/16) Paxil (Verified Adverse Reaction, Intermediate, RASH, 06/10/16) Objective . Vital Signs Date Time Temp Pulse Resp B/P Pulse Ox O2 Delivery O2 Flow Rate FiO2 06/15/16 08:53 94 21 06/15/16 08:00 96.7 86 20 138/81 93 06/15/16 03:30 97.2 84 16 138/86 92 06/14/16 23:40 97.4 87 19 130/79 89 06/14/16 22:00 84 06/14/16 22:00 94 Room Air 06/14/16 20:00 95 21 06/14/16 19:45 96.3 87 22 127/57 94 06/14/16 16:00 97.8 89 18 131/81 94 06/14/16 12:00 98.4 74 16 128/79 93 06/14/16 06/14/16 06/15/16 15:00 23:00 07:00 Intake Total 1277 ml 100 ml 1190 ml Balance 1277 ml 100 ml 1190 ml Intake Oral 900 ml 480 ml IV Total 377 ml 100 ml 710 ml # Voids 8 3 # Bowel Movements 1 . Laboratory Tests Test 06/14/16 06/15/16 07:10 05:47 White Blood Count 275.3 TH/MM3 302.1 TH/MM3 Red Blood Count 3.14 MIL/MM3 3.29 MIL/MM3 Hemoglobin 9.8 GM/DL 10.3 GM/DL Hematocrit 30.5 % 31.7 % Mean Corpuscular Volume 97.0 FL 96.5 FL Mean Corpuscular Hemoglobin 31.1 PG 31.4 PG Mean Corpuscular Hemoglobin 32.0 % 32.5 % Concent Red Cell Distribution Width 15.3 % 14.7 % Platelet Count 141 TH/MM3 151 TH/MM3 Mean Platelet Volume 7.6 FL 7.9 FL Neutrophils (%) (Auto) 3.5 % % Lymphocytes (%) (Auto) 93.7 % % Monocytes (%) (Auto) 2.5 % % Eosinophils (%) (Auto) 0.1 % % Basophils (%) (Auto) 0.2 % % Neutrophils # (Auto) 9.6 TH/MM3 TH/MM3 Lymphocytes # (Auto) 257.9 TH/MM3 TH/MM3 Monocytes # (Auto) 6.8 TH/MM3 TH/MM3 Eosinophils # (Auto) 0.4 TH/MM3 TH/MM3 Basophils # (Auto) 0.6 TH/MM3 TH/MM3 CBC Comment AUTO DIFF AUTO DIFF Differential Total Cells 100 200 Counted Neutrophils % (Manual) 3 % 1 % Lymphocytes % 96 % 99 % Monocytes % 1 % 1 % Neutrophils # (Manual) 8.3 TH/MM3 3.0 TH/MM3 Differential Comment FINAL DIFF FINAL DIFF MANUAL MANUAL Smudge Cells PRESENT PRESENT Platelet Estimate LOW NORMAL Platelet Morphology Comment NORMAL NORMAL Red Cell Morphology Comment NORMAL NORMAL Laboratory Tests Test 06/14/16 06/15/16 07:10 05:47 Sodium Level 142 MEQ/L 139 MEQ/L Potassium Level 3.4 MEQ/L 3.8 MEQ/L Chloride Level 110 MEQ/L 108 MEQ/L Carbon Dioxide Level 22.0 MEQ/L 22.1 MEQ/L Anion Gap 10 MEQ/L 9 MEQ/L Blood Urea Nitrogen 16 MG/DL 16 MG/DL Creatinine 1.04 MG/DL 1.02 MG/DL Estimat Glomerular Filtration 71 ML/MIN 73 ML/MIN Rate Random Glucose 129 MG/DL 116 MG/DL Calcium Level 8.6 MG/DL 8.5 MG/DL Total Bilirubin 0.6 MG/DL 0.6 MG/DL Aspartate Amino Transf 16 U/L 16 U/L (AST/SGOT) Alanine Aminotransferase 12 U/L 14 U/L (ALT/SGPT) Alkaline Phosphatase 91 U/L 92 U/L Total Protein 6.8 GM/DL 6.7 GM/DL Albumin 2.4 GM/DL 2.2 GM/DL Imaging Last Impressions Chest X-Ray 06/14/16 0600 Signed Impressions: Service Date/Time: Tuesday, June 14, 2016 03:57 - CONCLUSION: Bilateral airspace opacities and left pleural effusion developing/worsening. Braxton Campuzano MD CT Angiography 06/10/16 1547 Signed Impressions: Service Date/Time: Friday, June 10, 2016 20:24 - CONCLUSION: 1. Negative for pulmonary embolus. 2. Extensive mediastinal and axillary adenopathy in patient with reported history of leukemia. 3. Moderate left effusion with compressive atelectasis left lower lung. Extensive bilateral airspace disease in the lungs. Findings nonspecific but differential diagnosis includes infection, edema and hypersensitivity pneumonitis. Manjeet Alvarado MD Physical Exam CONSTITUTIONAL/GENERAL: This is an adequately nourished patient, in no apparent distress. TUBES/LINES/DRAINS: SKIN: No jaundice, rashes, + scattered skin ca lesions. . Not diaphoretic. Large skin flap R parietal area CARDIOVASCULAR: Regular rate and rhythm without murmurs, gallops, or rubs. No JVD. Peripheral pulses symmetric. RESPIRATORY/CHEST: Symmetric, unlabored respirations. Clear to auscultation. Breath sounds equal bilaterally. No wheezes, rales, or rhonchi. GASTROINTESTINAL: Abdomen soft, non-tender, nondistended. No hepato-splenomegaly , or palpable masses. No guarding. Bowel sounds present. MUSCULOSKELETAL: Extremities without clubbing, cyanosis, or edema. NEUROLOGICAL: Awake and alert. Motor and sensory grossly within normal limits. Follows commands. Speech nl. Moves all extremities. Assessment & Plan Remarks CLL with extremely high WBC (in 300K range) per pt his baseline is around 50 K PNA, b/l with clinical improvement - dc current abx -start levaquin 750 mg daily x 1 wk to complete 10 day of abx - longer course 2/2 immunosuppressive status dw RN dw pt dw attending Isabella Mckeon MD Jun 15, 2016 11:59
[2016-06-15] MEDS ORDERED: LEVA750T PO (12:10)
[2016-06-15] MEDS ORDERED: LEVOFLOXACIN 750 MG TAB PO SCH (13:00)
--- NOTE | 2016-06-19 18:57 | MD ---
cc: Carlo DAVIS ADMISSION DATE: 06/10/2016 DISCHARGE DATE: 06/15/2016 BRIEF HISTORY Mr. Liu is a 66-year-old white male with CLL who presented with left lower lobe pneumonia and effusion with shortness of breath. Fluid was drained on admission and cultures on that were negative. Acid fast stain was negative. The patient presented with a marked elevation in white count of 300,000. Hematology/Oncology was consulted and did treat him. [facility] [place] HOSPITAL COURSE The patient had an unremarkable hospital course, actually did very well considering the underlying CLL and the pneumonia. Cultures, urinary antigens were all negative, no specific organism was identified. The patient was weaned to room air with saturations in the mid 90s and when I saw him last yesterday, June 14, he was up ambulating and anxious to be discharged. His last chest x-ray was done on 06/14 that did reveal residual left effusion with infiltrate, and I explained to Braxton that although he was much better clinically that he would have to have followup with [facility] within a week for a followup film. In addition to that if he had recurrent fever or shortness of breath, increasing respiratory symptoms of any kind particularly in light of the underlying CLL, he should report directly back to the hospital. He was very stable at the time of discharge. Discharge was arranged by the hospitalist. The patient understands that he must [facility]. MD BEE Garza/GADIEL /11:53 AM /6:48 PM
== END 2016-06-15 13:44 | disposition home or self-care (01) | DRG 871 ==
LOC: NEPE 13:13 → NEDA 21:48 → HIMN 06-11 02:40 → HOCB 06-13 16:28
PROVIDERS: ADMIT Internal Medicine Critical Care Medicine; ATTEND Hospitalist
PROC: 0W9B3ZX Drainage of Left Pleural Cavity, Percutaneous Approach, Diagnostic (ICD-10-PCS; principal; 2016-06-10)
PROC: 30233S1 Transfusion of Nonautologous Globulin into Peripheral Vein, Percutaneous Approach (ICD-10-PCS; 2016-06-11)
DX: A41.9 Sepsis, unspecified organism (principal); J18.0 Bronchopneumonia, unspecified organism; J96.01 Acute respiratory failure with hypoxia; J91.8 Pleural effusion in other conditions classified elsewhere; D80.1 Nonfamilial hypogammaglobulinemia; C91.10 Chronic lymphocytic leukemia of B-cell type not having achieved remission; E87.5 Hyperkalemia; R65.20 Severe sepsis without septic shock; E78.5 Hyperlipidemia, unspecified; F31.9 Bipolar disorder, unspecified; F43.10 Post-traumatic stress disorder, unspecified; E11.9 Type 2 diabetes mellitus without complications; L28.1 Prurigo nodularis; L57.0 Actinic keratosis; G89.29 Other chronic pain; M19.90 Unspecified osteoarthritis, unspecified site; M54.5 Low back pain; R59.0 Localized enlarged lymph nodes; I10 Essential (primary) hypertension; Z85.828 Personal history of other malignant neoplasm of skin; Z92.21 Personal history of antineoplastic chemotherapy; Z79.84 Long term (current) use of oral hypoglycemic drugs; Z87.891 Personal history of nicotine dependence; Z88.8 Allergy status to other drugs, medicaments and biological substances
CPT/HCPCS: 36600; 71010; 71275; 76937; 80048; 80053; 80202; 82150; 82435; 82550; 82565; 82784; 82805; 82945; 82947; 82948; 83010; 83605; 83615; 83735; 83880; 83986; 84100; 84132; 84157; 84295; 84484; 84520; 85007; 85027; 85610; 85730; 86631; 86632; 86738; 87015; 87040; 87070; 87102; 87116; 87205; 87206; 87449; 87641; 87804; 88112; 88184; 88185; 88237; 88264; 88280; 88305; 88377; 89051; 93005; 94150; 94640; 94664; 96361; 96365; 96366; 96368; 96375; C9113; J0456; J0610; J0696; J1100; J1450; J1459; J1650; J1815; J2060; J2270; J2543; J3370; J3411; J7030; J7040; J7050; Q9967